=== PATIENT | male | born 1935 | race Caucasian/White ===

== ENCOUNTER 2016-04-07 11:22 | Outpatient (CLI) | payer MEDICARE, BC | END 2016-04-07 11:23 | disposition home or self-care (01) | DX: E78.00 Pure hypercholesterolemia, unspecified (principal); E55.9 Vitamin D deficiency, unspecified ==

== ENCOUNTER 2016-11-24 12:45 | Outpatient (CLI) | payer MEDICARE, BC | END 2016-11-24 12:46 | disposition home or self-care (01) | LOC: LAB.F 12:45 | PROVIDERS: ATTEND Internal Medicine | DX: E55.9 Vitamin D deficiency, unspecified (principal) | CPT/HCPCS: 36415; 82306 ==

== ENCOUNTER 2016-12-06 11:17 | Outpatient (CLI) | payer MEDICARE, BC ==
--- NOTE | 2016-12-07 15:39 | DEXA Report ---
DEXA: 12/06/2016 CLINICAL INDICATION: Osteoporosis. TECHNIQUE: Dual energy x-ray absorptiometry (DXA) was performed on a [employer] system. Regions measured are the AP spine, femoral neck, and, if needed, forearm. COMPARISON: None. In accordance with the International Society for Clinical Densitometry (ISCD) guidelines, data from previous exams may be reanalyzed using current recommendations and techniques. This is done to allow a more accurate basis for comparison with the current study. FINDINGS Data for the lumbar spine is as follows: REGION BMD (g/cm/cm) T-SCORE Z-SCORE L1 0.761 -3.3 -1.9 L2 0.834 -3.4 -2.0 L3 1.048 -1.6 -0.2 L4 1.054 -1.6 -0.1 TOTAL 0.934 -2.4 -1.0 NOTE: All evaluable vertebrae are used for classification. Data for the hip is as follows: REGION BMD (g/cm/cm) T-SCORE Z-SCORE Neck 0.589 -3.7 -1.7 TOTAL 0.645 -3.2 -1.6 NOTE: The femoral neck or total proximal femur, whichever is lowest, is used for classification. IMPRESSION: THE WHO CLASSIFICATION BASED ON THE INTERNATIONAL REFERENCE STANDARD IS OSTEOPOROSIS. FRACTURE RISK IS HIGH. RECOMMENDATION: Patients with diagnosis of osteoporosis or osteopenia should have regular bone mineral density assessment. For those eligible for Medicare, routine testing is allowed once every 2 years. Testing frequency can be increased for patients who have rapidly progressing disease or for those who are receiving medical therapy to restore bone mass. COMMENT: World Health Organization (WHO) definitions for osteoporosis and osteopenia: NORMAL BMD: T-score at -1.0 or higher, fracture risk is low. OSTEOPENIA BMD: T-score between -1.0 and -2.5, fracture risk is increased. OSTEOPOROSIS BMD: T-score at -2.5 or lower, fracture risk high. National Osteoporosis Foundation recommends: 1. Obtain adequate dietary calcium (at least 1200 mg per day) and vitamin D (400 -800 international units per day). 2. Participate, as appropriate, in regular weightbearing and muscle- strengthening exercise. 3. Avoid tobacco use and reduce alcohol and caffeine intake. 4. For more detailed information see the website at www.NOF.org. MTDD
== END 2016-12-06 11:18 | disposition home or self-care (01) ==
LOC: DI 11:17
PROVIDERS: ATTEND Internal Medicine
DX: M81.0 Age-related osteoporosis without current pathological fracture (principal)
CPT/HCPCS: 77080

== ENCOUNTER 2017-01-13 15:47 | Outpatient (CLI) | payer MEDICARE, BC ==
[2017-01-13 18:48] LABS: BILIRUBIN,URINE NEGATIVE (NEGATIVE)
[2017-01-13 18:51] LABS: BASOPHILS % (AUTO) 0.6 %; EOSINOPHILS # (AUTO) 0.1 10^3/uL (0.0-0.7); EOSINOPHILS % (AUTO) 1.3 %; HCT - HEMATOCRIT 45.8 % (42.0-52.0); HGB - HEMOGLOBIN 15.5 g/dL (14.0-18.0); LYMPHOCYTES # (AUTO) 1.3 10^3/uL (1.5-3.5); LYMPHOCYTES % (AUTO) 19.4 %; MEAN CORPUSCULAR HEMOGLOBIN 34.2 pg (27.0-31.0); MEAN CORPUSCULAR HGB CONC 33.8 g/dL (32.0-36.0); MEAN CORPUSCULAR VOLUME 101.1 fL (80.0-94.0); MEAN PLATELET VOLUME 9.6 fL (7.4-11.4); MONOCYTES # (AUTO) 0.6 10^3/uL (0.0-1.0); MONOCYTES % (AUTO) 9.2 %; NEUTROPHILS # (AUTO) 4.8 10^3/uL (1.5-6.6); NEUTROPHILS % (AUTO) 69.5 %; NUCLEATED RED BLOOD CELLS AUTO 0.1 /100WBC; RED BLOOD COUNT 4.53 10^6/uL (4.70-6.10); RED CELL DISTRIBUTION WIDTH 12.5 % (12.0-15.0); UNCORRECTED WHITE BLOOD COUNT 6.8 x10^3/uL; WHITE BLOOD COUNT 6.8 x10^3/uL (4.8-10.8)
[2017-01-13 18:57] LABS: UR CULTURE IF IND NOT INDICATED; WBC,URINE 0-3 /HPF (0-3)
[2017-01-13 19:24] LABS: BILIRUBIN,TOTAL 0.5 mg/dL (0.2-1.0); CREATININE 1.1 mg/dL (0.6-1.2); POTASSIUM 4.7 mmol/L (3.5-5.0); TOTAL PROTEIN 7.5 g/dL (6.7-8.2)
== END 2017-01-13 15:48 | disposition home or self-care (01) ==
LOC: LAB.F 15:47
PROVIDERS: ATTEND Physician Assistant Medical
DX: R50.9 Fever, unspecified (principal); Z12.5 Encounter for screening for malignant neoplasm of prostate; N39.0 Urinary tract infection, site not specified; R53.83 Other fatigue
CPT/HCPCS: 36415; 80053; 81001; 85025; G0103; 84153; 87086

== ENCOUNTER 2017-01-14 10:04 | Outpatient (CLI) | payer MEDICARE, BC ==
--- NOTE | 2017-01-14 21:59 | XRAY Report ---
EXAM: CHEST RADIOGRAPHY EXAM DATE: 01/14/2017 10:22 AM. CLINICAL HISTORY: FATIGUE AND MALAISE, FEVER. COMPARISON: 08/20/2013. TECHNIQUE: 2 views. FINDINGS: Lungs/Pleura: Lung volumes are increased. No consolidative process or focal pneumonia. Negative for p leural effusion and pneumothorax. Mediastinum: The heart size is normal. Trachea is midline. Other: None. IMPRESSION: No acute cardiopulmonary abnormality. [facility] Referring Provider Line: [phone] SITE ID: [id number]
== END 2017-01-14 10:05 | disposition home or self-care (01) ==
LOC: DI 10:04
PROVIDERS: ATTEND Physician Assistant Medical
DX: R53.83 Other fatigue (principal); R50.9 Fever, unspecified
CPT/HCPCS: 71020

== ENCOUNTER 2017-01-27 10:44 | Outpatient (CLI) | payer MEDICARE, BC ==
[2017-01-27 18:07] LABS: PSA FREE 0.517 ng/mL (0.16-2.81)
[2017-01-27 18:08] LABS: PSA TOTAL 2.403 ng/mL (0.000-2.000)
[2017-01-27 18:12] LABS: THYROID STIMULATING HORMONE 1.51 uIU/mL (0.34-5.60)
== END 2017-01-27 10:45 | disposition home or self-care (01) ==
LOC: LAB.F 10:44
PROVIDERS: ATTEND Physician Assistant Medical
DX: R53.83 Other fatigue (principal); R97.20 Elevated prostate specific antigen [PSA]
CPT/HCPCS: 36415; 82607; 84154; 84443

== ENCOUNTER 2017-08-21 09:42 | Outpatient (CLI) | payer MEDICARE, BC ==
[2017-08-21 18:22] LABS: ALBUMIN 4.2 g/dL (3.2-5.5); ALBUMIN/GLOBULIN RATIO 1.2 (1.0-2.2); ALKALINE PHOSPHATASE 55 IU/L (42-121); ALT ALANINE AMINOTRANSFERASE 14 IU/L (10-60); AST ASPARTATE AMINOTRANSFERASE 19 IU/L (10-42); BILIRUBIN,TOTAL 0.9 mg/dL (0.2-1.0); BUN - BLOOD UREA NITROGEN 22 mg/dL (6-20); CALCIUM 9.9 mg/dL (8.5-10.3); CARBON DIOXIDE - CO2 31 mmol/L (21-32); CHLORIDE 100 mmol/L (101-111); CHOL/HDL RATIO 3.4 (<5.0); CHOLESTEROL 260 mg/dL; CREATININE 1.3 mg/dL (0.6-1.2); GFR - MDRD 53 (>89); GLUCOSE 95 mg/dL (70-100); HDL CHOLESTEROL 76 mg/dL; LDL CHOLESTEROL,CALCULATED 159 mg/dL; LDL/HDL RATIO 2.1 (<3.6); SODIUM 139 mmol/L (135-145); TOTAL PROTEIN 7.7 g/dL (6.7-8.2); VLDL CHOLESTEROL 25 mg/dL
== END 2017-08-21 09:43 | disposition home or self-care (01) ==
LOC: LAB.F 09:42
PROVIDERS: ATTEND Internal Medicine
DX: I10 Essential (primary) hypertension (principal); E55.9 Vitamin D deficiency, unspecified
CPT/HCPCS: 36415; 80053; 80061; 82306; 82652; 83721; 84443

== ENCOUNTER 2018-03-19 13:08 | Outpatient (CLI) | payer MEDICARE, BC ==
[2018-03-19 17:37] LABS: BASOPHILS % (AUTO) 0.5 %; EOSINOPHILS % (AUTO) 0.2 %; HGB - HEMOGLOBIN 16.2 g/dL (14.0-18.0); LYMPHOCYTES # (AUTO) 1.3 10^3/uL (1.5-3.5); LYMPHOCYTES % (AUTO) 13.1 %; MEAN CORPUSCULAR HEMOGLOBIN 33.7 pg (27.0-31.0); MEAN CORPUSCULAR HGB CONC 33.3 g/dL (32.0-36.0); MEAN CORPUSCULAR VOLUME 101.2 fL (80.0-94.0); MEAN PLATELET VOLUME 8.7 fL (7.4-11.4); MONOCYTES # (AUTO) 0.7 10^3/uL (0.0-1.0); MONOCYTES % (AUTO) 7.2 %; NEUTROPHILS # (AUTO) 7.6 10^3/uL (1.5-6.6); PLT - PLATELET COUNT 321 10^3/uL (130-450); RED BLOOD COUNT 4.81 10^6/uL (4.70-6.10); RED CELL DISTRIBUTION WIDTH 13.8 % (12.0-15.0); WHITE BLOOD COUNT 9.6 x10^3/uL (4.8-10.8)
[2018-03-19 17:56] LABS: ALBUMIN 4.1 g/dL (3.2-5.5); ALBUMIN/GLOBULIN RATIO 1.2 (1.0-2.2); BILIRUBIN,TOTAL 0.6 mg/dL (0.2-1.0); CALCIUM 9.7 mg/dL (8.5-10.3); CREATININE 1.3 mg/dL (0.6-1.2); TOTAL PROTEIN 7.4 g/dL (6.7-8.2)
== END 2018-03-19 13:09 | disposition home or self-care (01) ==
LOC: LAB.F 13:08
PROVIDERS: ATTEND Physician Assistant Medical
DX: R53.83 Other fatigue (principal); R50.9 Fever, unspecified
CPT/HCPCS: 36415; 80053; 84443; 85025

== ENCOUNTER 2018-03-21 10:36 | Outpatient (CLI) | payer MEDICARE, BC ==
--- NOTE | 2018-03-21 16:00 | XRAY Report ---
Reason: FATIGUE MALAISE, SHORTNESS OF BREATH/OSTEOPOROSI Procedure Date: 03/21/2018 Accession Number: [id number] / [id number] Procedure: XR - Chest 2 View X-Ray CPT Code: 87970 FULL RESULT: EXAM: CHEST RADIOGRAPHY EXAM DATE: 03/21/2018 12:09 PM. CLINICAL HISTORY: Fatigue, malaise, shortness of breath/osteoporosis. COMPARISON: CHEST 2 VIEW PA/LAT 01/14/2017 10:09 AM. TECHNIQUE: 2 views. FINDINGS: Lungs/Pleura: Overall paucity of lung markings, especially in the left upper lung. No focal opacities evident. No pleural effusion. No pneumothorax. High lung volumes with flattening of diaphragms. Mediastinum: Heart and mediastinal contours are stable and not enlarged. Other: None. IMPRESSION: Suspect emphysema as well as COPD based on paucity of lung markings, increased lung volumes and flattened diaphragms. Recommendation: Low dose CT of the chest for lung cancer screening. [facility]
--- NOTE | 2018-03-23 09:20 | DEXA Report ---
Reason: FATIGUE MALAISE, SHORTNESS OF BREATH/OSTEOPOROSI Procedure Date: 03/21/2018 Accession Number: [id number] / [id number] Procedure: DEX - Dexa Spine and/or Hip CPT Code: FULL RESULT: EXAM: Dexa Spine and/or Hip DATE: 03/21/2018 11:18 AM CLINICAL HISTORY: FATIGUE MALAISE, SHORTNESS OF BREATH/OSTEOPOROSI TECHNIQUE: Dual energy x-ray absorptiometry (DXA) was performed on a [employer] System. Regions measured are the AP Spine, femoral neck, and if needed forearm. COMPARISON: 12/06/2016. In accordance with the International Society for Clinical Densitometry (ISCD) guidelines, data from previous exams may be reanalyzed using current recommendations and techniques. This is done to allow a more accurate basis for comparison with the current study. FINDINGS: The data for the lumbar spine is as follows: BMD (g/cm/cm) T-SCORE Z-SCORE REGION L1 0.750 -3.4 -2.2 L2 0.836 -3.4 -2.1 L3 0.931 -2.6 -1.3 L4 1.015 -1.9 -0.6 TOTAL 0.897 -2.7 -1.5 NOTE: All evaluable vertebrae are used for classification The data for the hip is as follows: BMD (g/cm/cm) T-SCORE Z-SCORE REGION Neck 0.593 -3.7 -1.8 TOTAL 0.664 -3.0 -1.6 NOTE: The femoral neck or total proximal femur, whichever is lowest, is used for classification. DXA RESULTS SUMMARY: Spine SCAN DATE AGE BMD CHANGE VS CHANGE VS PREVIOUS PREVIOUS % [birth year]21/2018 [age] 0.897 -0.037* -4.0* 12/06/2016 [age] 0.934 * Denotes significant change at the 95% confidence level. Denotes dissimilar scan types or analysis methods. DXA RESULTS SUMMARY: Hip SCAN DATE AGE BMD CHANGE VS CHANGE VS PREVIOUS PREVIOUS % [birth year]/2018 82.3 0.664 0.019 2.9 12/06[birth year]2016 [age] 0.645 * Denotes significant change at the 95% confidence level. Denotes dissimilar scan types or analysis methods. IMPRESSION: THE WHO CLASSIFICATION BASED ON THE INTERNATIONAL REFERENCE STANDARD IS OSTEOPOROSIS. THE FRACTURE RISK IS HIGH. RECOMMENDATION: Patients with diagnosis of osteoporosis or osteopenia should have regular bone mineral density assessment. For those eligible for Medicare, routine testing is allowed once every 2 years. Testing frequency can be increased for patients who have rapidly progressing disease or for those who are receiving medical therapy to restore bone mass. COMMENT: World Health Organization (WHO) definitions for osteoporosis and osteopenia: NORMAL BMD: T-score at -1.0 or higher, fracture risk is low OSTEOPENIA BMD: T-score between -1.0 and -2.5, fracture risk is increased. OSTEOPOROSIS BMD: T-score at -2.5 or lower, fracture risk is high. National Osteoporosis Foundation recommends: 1. Obtain adequate dietary calcium (at least 1200 mg per day) and vitamin D (400-800 international units per day). 2. Participate, as appropriate, in regular weightbearing and muscle-strengthening exercise. 3. Avoid tobacco use and reduce alcohol and caffeine intake. 4. For more detailed information see the website at www.NOF.org.
== END 2018-03-21 10:37 | disposition home or self-care (01) ==
LOC: DI 10:36
PROVIDERS: ATTEND Physician Assistant Medical
DX: M81.0 Age-related osteoporosis without current pathological fracture (principal); R53.83 Other fatigue; R06.02 Shortness of breath
CPT/HCPCS: 71046; 77080

== ENCOUNTER 2020-03-21 13:18 | Outpatient (CLI) | payer MEDICARE, BC | END 2020-03-21 13:19 | disposition EMS.NT | LOC: EMS 13:18 | PROVIDERS: ATTEND Surgery | DX: Z03.89 Encounter for observation for other suspected diseases and conditions ruled out (principal) ==

== ENCOUNTER 2020-04-29 13:50 | Outpatient (CLI) | payer MEDICARE, BC ==
[2020-04-29 19:57] LABS: BASOPHILS % (AUTO) 0.3 %; EOSINOPHILS # (AUTO) 0.2 10^3/uL (0.0-0.7); EOSINOPHILS % (AUTO) 1.7 %; HCT - HEMATOCRIT 37.3 % (42.0-52.0); HGB - HEMOGLOBIN 10.9 g/dL (14.0-18.0); LYMPHOCYTES # (AUTO) 1.5 10^3/uL (1.5-3.5); LYMPHOCYTES % (AUTO) 11.1 %; MEAN CORPUSCULAR HEMOGLOBIN 30.4 pg (27.0-31.0); MEAN CORPUSCULAR HGB CONC 29.2 g/dL (32.0-36.0); MEAN CORPUSCULAR VOLUME 103.9 fL (80.0-94.0); MEAN PLATELET VOLUME 10.3 fL (7.4-11.4); MONOCYTES # (AUTO) 1.4 10^3/uL (0.0-1.0); MONOCYTES % (AUTO) 10.6 %; NEUTROPHILS # (AUTO) 10.2 10^3/uL (1.5-6.6); NEUTROPHILS % (AUTO) 75.3 %; PLT - PLATELET COUNT 775 10^3/uL (130-450); RED BLOOD COUNT 3.59 10^6/uL (4.70-6.10); RED CELL DISTRIBUTION WIDTH 13.2 % (12.0-15.0); WHITE BLOOD COUNT 13.6 x10^3/uL (4.8-10.8)
[2020-04-29 20:04] LABS: BILIRUBIN,URINE NEGATIVE (NEGATIVE); GLUCOSE, URINE (UA) NEGATIVE (NEGATIVE); KETONES,URINE (UA) NEGATIVE (NEGATIVE); LEUKOCYTE ESTERASE, URINE TRACE (NEGATIVE); NITRITE,URINE NEGATIVE (NEGATIVE); OCCULT BLOOD,URINE LARGE (NEGATIVE); PH,URINE 6.5 PH (5.0-7.5); PROTEIN,URINE 100 mg/dL (NEGATIVE); UROBILINOGEN,URINE 0.2 (NORMAL) E.U./dL (NORMAL)
[2020-04-29 20:08] LABS: CLARITY,URINE CLOUDY (CLEAR)
[2020-04-29 20:14] LABS: BACTERIA,URINE Few /HPF (None Seen); RBC,URINE TNTC /HPF (0-5); SQUAMOUS EPITHELIAL CELL,UR RARE Squamous (<= Few)
[2020-04-29 20:23] LABS: THYROID STIMULATING HORMONE 3.09 uIU/mL (0.34-5.60)
[2020-04-29 20:33] LABS: ALBUMIN 2.6 g/dL (3.2-5.5); ALBUMIN/GLOBULIN RATIO 0.6 (1.0-2.2); ALKALINE PHOSPHATASE 73 IU/L (42-121); ALT ALANINE AMINOTRANSFERASE 12 IU/L (10-60); AST ASPARTATE AMINOTRANSFERASE 19 IU/L (10-42); BILIRUBIN,TOTAL 0.4 mg/dL (0.2-1.0); BUN - BLOOD UREA NITROGEN 25 mg/dL (6-20); CHOL/HDL RATIO 5.5 (<5.0); CHOLESTEROL 216 mg/dL; CREATININE 2.3 mg/dL (0.6-1.2); GFR - MDRD 27 (>89); HDL CHOLESTEROL 39 mg/dL; LDL CHOLESTEROL,CALCULATED 153 mg/dL; LDL/HDL RATIO 3.9 (<3.6); TOTAL PROTEIN 7.2 g/dL (6.7-8.2); TRIGLYCERIDES 118 mg/dL; VLDL CHOLESTEROL 24 mg/dL
[2020-04-29 20:43] LABS: CALCIUM 8.8 mg/dL (8.5-10.3); CARBON DIOXIDE - CO2 25 mmol/L (21-32); CHLORIDE 98 mmol/L (101-111); GLUCOSE 107 mg/dL (70-100); POTASSIUM 3.6 mmol/L (3.5-5.0); SODIUM 136 mmol/L (135-145)
== END 2020-04-29 13:51 | disposition home or self-care (01) ==
LOC: LAB.S 13:50
PROVIDERS: ATTEND Registered Nurse
DX: I10 Essential (primary) hypertension (principal); E78.00 Pure hypercholesterolemia, unspecified; Z12.5 Encounter for screening for malignant neoplasm of prostate; R31.9 Hematuria, unspecified
CPT/HCPCS: 36415; 80053; 80061; 81001; 83721; 84153; 84443; 85025; 87086

== ENCOUNTER 2020-04-29 16:52 | Inpatient (IN) | payer MEDICARE, BC ==
--- NOTE | 2020-04-29 17:18 | ED Physician Documentation ---
PD HPI MALE - Stated complaint Stated Complaint: WEAKNESS/RECTAL BLEED - Chief complaint Chief Complaint: General - History obtained from History obtained from: Patient, Family (spouse) - History of Present Illness Timing - onset: How many weeks ago (2-3 weeks of general weakness, nausea, less oral intake, but no vomiting and no notable weight loss. Few days of chills and fatigue, discomfort urinating. This morning had temp at home of 101.5 and blood with urination.) Timing - duration: Days, Weeks Timing - details: Gradual onset, Still present (worse the past couple of days.) Associated symptoms: Dysuria (few days), Hematuria (this morning). No: Abdominal pain, Back pain PD HPI MALE CONTRIB FACTORS: No: Sexually active Similar symptoms before: Has not had sx before Recently seen: Clinic (went to Urgent Care this afternoon and had UA done there that was positive for UTI, and noted to be tachycardic and febrile 101.5 there. Referred to ER for Eval.) Review of Systems Constitutional: reports: Fever (noted today), Chills (few days), Fatigue Ears: reports: Loss of hearing (chronic poor hearing) Nose: denies: Rhinorrhea / runny nose, Congestion Throat: denies: Sore throat Cardiac: denies: Chest pain / pressure Respiratory: denies: Dyspnea, Cough GI: reports: Nausea, Constipation (for couple of weeks.). denies: Abdominal Pain, Vomiting, Diarrhea : reports: Dysuria, Hematuria (today) Skin: denies: Rash Neurologic: reports: Generalized weakness. denies: Focal weakness, Near syncope, Altered mental status, Headache Endocrine: denies: Weight loss Immunocompromised: denies: Immunocompromised PD PAST MEDICAL HISTORY - Past Medical History Cardiovascular: Hypertension Respiratory: None Endocrine/Autoimmune: None : Benign prostate hypertrophy Musculoskeletal: None - Present Medications Home Medications: Ambulatory Orders Medication Instructions Recorded Confirmed Tamsulosin [Flomax] 0.4 mg PO DAILY 04/29/20 04/29/20 - Allergies Allergies/Adverse Reactions: Allergies Allergy/AdvReac Type Severity Reaction Status Date / Time No Known Drug Allergies Allergy Verified 04/29/20 17:08 - Living Situation Living Situation: reports: With spouse/s.o. Living Arrangement: reports: At home - Social History Does the pt smoke?: No Does the pt drink ETOH?: No Does the pt have substance abuse?: No - Family History Family history: reports: Non contributory PD ED PE NORMAL - Vitals Vital signs reviewed: Yes - General General: Alert and oriented X 3, Well developed/nourished - HEENT HEENT: Pharynx benign, Other (hard of hearing). No: Moist mucous membranes - Neck Neck: Supple, no meningeal sign, No adenopathy - Cardiac Cardiac: No: RRR (tachycardic but regular) - Respiratory Respiratory: Clear bilaterally - Abdomen Abdomen: Soft, Non tender, Non distended, No organomegaly - Back Back: No CVA TTP - Derm Derm: Normal color, Warm and dry - Extremities Extremities: No tenderness to palpate, Normal ROM s pain, No edema, No calf tenderness / cord - Neuro Neuro: Alert and oriented X 3, No motor deficit, Normal speech Results - Vitals Vitals: Vital Signs - 24 hr 04/29/20 17:03 Temperature 36.6 C Heart Rate 103 H Respiratory 14 Rate Blood Pressure 122/57 L O2 Saturation 94 Oxygen O2 Source Room air - EKG (time done) 17:13 Rate: Rate (enter#) (96) Rhythm: NSR [place]: Normal Intervals: LBBB QRS: Normal Ischemia: Normal ST segments, Non specific changes. No: ST elevation c/w ischemia, ST depression - Labs Labs: Laboratory Tests 04/29/20 04/29/20 04/29/20 17:15 17:15 17:20 WBC 11.7 H RBC 3.43 L Hgb 10.5 L Hct 34.1 L MCV 99.4 H MCH 30.6 MCHC 30.8 L RDW 13.1 Plt Count 629 H MPV 9.4 Neut # (Auto) 9.5 H Lymph # (Auto) 0.8 L Yell # (Auto) 1.1 H Eos # (Auto) 0.1 Baso # (Auto) 0.1 Absolute Nucleated RBC 0.00 Nucleated RBC % 0.0 Sodium Potassium Chloride Carbon Dioxide Anion Gap BUN Creatinine Estimated GFR (MDRD) Glucose Lactic Acid Calcium Total Bilirubin AST ALT Alkaline Phosphatase B-Natriuretic Peptide 106 H Total Protein Albumin Globulin Albumin/Globulin Ratio Lipase TSH 2.99 04/29/20 04/29/20 17:20 17:20 WBC RBC Hgb Hct MCV MCH MCHC RDW Plt Count MPV Neut # (Auto) Lymph # (Auto) Yell # (Auto) Eos # (Auto) Baso # (Auto) Absolute Nucleated RBC Nucleated RBC % Sodium 134 L Potassium 4.0 Chloride 98 L Carbon Dioxide 24 Anion Gap 12.0 BUN 27 H Creatinine 2.3 H Estimated GFR (MDRD) 27 L Glucose 126 H Lactic Acid 1.6 Calcium 8.7 Total Bilirubin 0.8 AST 16 ALT 15 Alkaline Phosphatase 71 B-Natriuretic Peptide Total Protein 6.9 Albumin 2.5 L Globulin 4.4 H Albumin/Globulin Ratio 0.6 L Lipase 27 TSH - Rads (name of study) chest xray Radiology: Prelim report reviewed (no acute process), See rad report PD MEDICAL DECISION MAKING - ED course Complexity details: reviewed results (Labs are showing elevated white count and an elevated creatinine over baseline. Chest x-ray is clear done in evaluation of general weakness symptoms overall. He does have UTI and unclear the duration of that.), re-evaluated patient, considered differential (UTI symptoms, general weakness, tachycardia and febrile. He does not appear septic with good mentation and normal lactate but still his vitals are concerning in conjunction with his elevated creatinine that I feel he needs further acute care.), d/w patient Departure - Departure Disposition: 66 [facility] DC/Xfer Clinical Impression: General weakness, Decreased oral intake, Acute kidney injury UTI (urinary tract infection) Qualifiers: Urinary tract infection type: acute cystitis Hematuria presence: with hematuria Qualified Code(s): N30.01 - Acute cystitis with hematuria Condition: Stable Record reviewed to determine appropriate education?: Yes
[2020-04-29 17:35] LABS: BASOPHILS # (AUTO) 0.1 10^3/uL (0.0-0.1); BASOPHILS % (AUTO) 0.4 %; EOSINOPHILS # (AUTO) 0.1 10^3/uL (0.0-0.7); EOSINOPHILS % (AUTO) 0.9 %; HCT - HEMATOCRIT 34.1 % (42.0-52.0); HGB - HEMOGLOBIN 10.5 g/dL (14.0-18.0); LYMPHOCYTES # (AUTO) 0.8 10^3/uL (1.5-3.5); LYMPHOCYTES % (AUTO) 6.6 %; MEAN CORPUSCULAR HEMOGLOBIN 30.6 pg (27.0-31.0); MEAN CORPUSCULAR HGB CONC 30.8 g/dL (32.0-36.0); MEAN CORPUSCULAR VOLUME 99.4 fL (80.0-94.0); MEAN PLATELET VOLUME 9.4 fL (7.4-11.4); MONOCYTES # (AUTO) 1.1 10^3/uL (0.0-1.0); MONOCYTES % (AUTO) 9.6 %; NEUTROPHILS # (AUTO) 9.5 10^3/uL (1.5-6.6); NEUTROPHILS % (AUTO) 81.7 %; PLT - PLATELET COUNT 629 10^3/uL (130-450); RED BLOOD COUNT 3.43 10^6/uL (4.70-6.10); RED CELL DISTRIBUTION WIDTH 13.1 % (12.0-15.0); WHITE BLOOD COUNT 11.7 x10^3/uL (4.8-10.8)
[2020-04-29] MEDS ORDERED: cefTRIAXone 1 GM VIAL IVP STA (17:44)
[2020-04-29] MEDS ORDERED: SODIUM CHLORIDE 0.9% 1,000 ML IV STA (17:44)
[2020-04-29] MEDS ORDERED: ACETAMINOPHEN 325 MG TABLET PO STA (17:45)
[2020-04-29 17:50] LABS: ALBUMIN 2.5 g/dL (3.2-5.5); ALBUMIN/GLOBULIN RATIO 0.6 (1.0-2.2); BILIRUBIN,TOTAL 0.8 mg/dL (0.2-1.0); CALCIUM 8.7 mg/dL (8.5-10.3); CREATININE 2.3 mg/dL (0.6-1.2); TOTAL PROTEIN 6.9 g/dL (6.7-8.2)
--- NOTE | 2020-04-29 18:10 | XRAY Report ---
PROCEDURE: Chest 1 View X-Ray INDICATIONS: chest pain TECHNIQUE: One view of the chest was acquired. COMPARISON: FINDINGS: Surgical changes and devices: None. Lungs and pleura: No pleural effusions or pneumothorax. Lungs are abnormal with chronic interstitia l prominence, and with a band of radiodensity extending vertically at the lateral right upper lobe an d also a band of radiodensity extending laterally from the brachiocephalic artery region on the left. The exact etiology of these findings is uncertain, but a pneumothorax is not found.. Mediastinum: Mediastinal contours appear normal. Heart size is normal. Bones and chest wall: No suspicious bony lesions. Overlying soft tissues appear unremarkable. IMPRESSION: Unusual radiodensities as discussed above could be skin folds, superimposed on chronic lung disease. These bands of radiodensity bilaterally were not present on a comparison two-view chest 01/14/2017. D eep inspiratory PA and lateral chest plain films are recommended to more accurately assess this abnor mality, either now or in the near future. Reviewed by: Abhinav Schmitt MD on 04/29/2020 5:09 PM AKST Approved by: Abhinav Schmitt MD on 04/29/2020 5:09 PM AKST Station ID: [id number]
[2020-04-29] MEDS ORDERED: SODIUM CHLORIDE FLUSH 0.9% 10 ML SYRINGE IVP PRN (18:37)
[2020-04-29] MEDS ORDERED: ACETAMINOPHEN 325 MG TABLET PO PRN (18:37)
[2020-04-29 18:38] LABS: BILIRUBIN,URINE NEGATIVE (NEGATIVE); GLUCOSE, URINE (UA) NEGATIVE (NEGATIVE); KETONES,URINE (UA) NEGATIVE (NEGATIVE); LEUKOCYTE ESTERASE, URINE TRACE (NEGATIVE); NITRITE,URINE NEGATIVE (NEGATIVE); OCCULT BLOOD,URINE LARGE (NEGATIVE); PH,URINE 6.5 PH (5.0-7.5); PROTEIN,URINE >=300 mg/dL (NEGATIVE); UROBILINOGEN,URINE 0.2 (NORMAL) E.U./dL (NORMAL)
[2020-04-29 18:51] LABS: CLARITY,URINE CLOUDY (CLEAR)
[2020-04-29 18:52] LABS: BACTERIA,URINE Rare /HPF (None Seen); RBC,URINE TNTC /HPF (0-5); SQUAMOUS EPITHELIAL CELL,UR NONE SEEN (<= Few)
[2020-04-29 19:45] LABS: B. PARAPERTUSSIS- RESP PCR PAN NOT DETECTED; B. PERTUSSIS- RESP PCR PANEL NOT DETECTED; C. PNEUMONIAE- RESP PCR PANEL NOT DETECTED; CORONAVIRUS 229E-RESP PCR NOT DETECTED; CORONAVIRUS HKU1-RESP PCR NOT DETECTED; CORONAVIRUS NL63-RESP PCR NOT DETECTED; CORONAVIRUS OC43-RESP PCR NOT DETECTED; HUMAN METAPNEUMOVIRUS NOT DETECTED; INFLUENZA A- RESP PCR PANEL NOT DETECTED; INFLUENZA B - RESP PCR PANEL NOT DETECTED; M. PNEUMONIAE- RESP PCR PANEL NOT DETECTED; PARAINFLUENZA VIRUS 1 NOT DETECTED; PARAINFLUENZA VIRUS 2 NOT DETECTED; PARAINFLUENZA VIRUS 3 NOT DETECTED; PARAINFLUENZA VIRUS 4 NOT DETECTED; RHINOVIRUS/ENTEROVIRUS NOT DETECTED; RSV- RESP PCR PANEL NOT DETECTED; SARS-CoV-2 -RESP PCR PANEL NOT DETECTED
[2020-04-29] MEDS: SODIUM CHLORIDE 0.9% 1,000 ML IV SCH (19:47)
[2020-04-29] MEDS: SODIUM CHLORIDE FLUSH 0.9% 10 ML SYRINGE IVP SCH (23:31)
--- NOTE | 2020-04-30 00:01 | HISTORY & PHYSICAL EXAMINATION ---
DATE OF SERVICE: 04/29/2020 Physician: Katie Guthrie MD HISTORY OF PRESENT ILLNESS: This is an 84-year-old white male with a history of prostatic hypertrophy and hard of hearing, he presented to the emergency room with weakness, chills and a fever today. The gave the history and reported that the patient has had weakness with no appetite and very poor oral intake for two to three weeks and then has complained of chills and been mostly in bed for two to three days. Today, he spiked a fever and therefore was brought to the emergency room. In the ER, he reported having hematuria, but no dysuria. He did not have a fever in the ER and his workup showed that he had an elevated white blood count of 11.7, abnormal creatinine of 2.3 and was tachycardic at 102. His urinalysis was done that showed indices compatible with a UTI. The patient is being admitted to inpatient status for management of sepsis from a UTI, acute kidney injury, dehydration, failure to thrive, and weakness. PAST MEDICAL HISTORY 1. Prostate hypertrophy. 2. Hard of hearing. ALLERGIES: NONE. MEDICATIONS: Tamsulosin 0.4 mg daily. SOCIAL HISTORY: He is a nonsmoker, drinks no alcohol. He lives with his . REVIEW OF SYSTEMS: He is hard of hearing, he listens with his left ear. A comprehensive review of systems was done and the pertinent positives are listed above, the rest are negative. FAMILY HISTORY: Noncontributory. PHYSICAL EXAM GENERAL: Thin, elderly, white male. He is in no acute distress, supine in bed. VITAL SIGNS: Blood pressure is 122/57, heart rate 103 in sinus rhythm, afebrile, room air saturation 94%. 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 He is thin with temporal wasting and hard of hearing, worse on the right. His oral mucosa is dry. NECK: No JVD or carotid bruits. CHEST: Clear. CARDIOVASCULAR: Normal without murmurs. ABDOMEN: Soft, nontender, not distended. No organomegaly. EXTREMITIES: No clubbing, cyanosis or edema. NEUROLOGIC: Grossly intact except for being hard of hearing. LABORATORY DATA: Sodium 134, potassium 4.0, BUN 27, creatinine 2.3 (his baseline creatinine is 1.0-1.3). White blood count 11.7, hemoglobin 10.5 with MCV of 99, platelet count elevated at 629. Urinalysis showed a pH of 6.5, specific gravity of 1.02, greater than 300 protein, large occult blood, trace leukocyte esterase, many white blood cells, and rare bacteria. His [employer] test was negative for COVID. EKG: Sinus rhythm, left bundle branch block. There is no old EKG available for comparison. IMAGING: Chest x-ray: Normal heart size and no evidence of infiltrate, but there is an abnormal interstitial prominence in a band, lateral to the right upper lobe, which the radiologist thought was possibly a skin fold, on top of chronic lung disease. IMPRESSION/DIAGNOSES 1. Sepsis by virtue of tachycardia, elevated white blood count and evidence of urinary tract infection. 2. Urinary tract infection. 3. Acute kidney injury. 4. Dehydration. 5. Anemia, despite being dehydrated. 6. Benign prostatic hypertrophy, by history. 7. Hard of hearing. PLAN: Admit the patient to inpatient status on telemetry. Begin IV fluids. Begin empiric IV antibiotics. Apparently iv ceftriaxone was already given in the ER, but blood cultures had not yet been done prior. Blood cultures have now been ordered and were drawn and we will await if there could be any growth despite having already received some IV antibiotics. Continue with treatment for his prostate hypertrophy. Follow his CBC, and we will probably need to check his B12, folate levels and iron stores. Consider transfusion if hemoglobin goes under 7. Avoid nephrotoxins. Avoid nephrotoxins. Follow his BMP daily, watching for improvement of creatinine. DEEP VENOUS THROMBOSIS PROPHYLAXIS: SCDs. CODE STATUS: FULL CODE. ATTESTATION: Patient is expected to be discharged or transferred to another facility within 96 hours: Yes. cc: Naveed Trevizo MD TD: 04/29/2020 23:26 MTDD
[2020-04-30] MEDS: SODIUM CHLORIDE 0.9% 1,000 ML IV SCH ×3 (03:30→21:21)
[2020-04-30 05:03] LABS: BASOPHILS % (AUTO) 0.4 %; EOSINOPHILS # (AUTO) 0.3 10^3/uL (0.0-0.7); EOSINOPHILS % (AUTO) 2.9 %; HCT - HEMATOCRIT 30.1 % (42.0-52.0); LYMPHOCYTES # (AUTO) 0.9 10^3/uL (1.5-3.5); LYMPHOCYTES % (AUTO) 8.9 %; MEAN CORPUSCULAR HEMOGLOBIN 30.1 pg (27.0-31.0); MEAN CORPUSCULAR HGB CONC 29.9 g/dL (32.0-36.0); MEAN CORPUSCULAR VOLUME 100.7 fL (80.0-94.0); MEAN PLATELET VOLUME 9.6 fL (7.4-11.4); MONOCYTES # (AUTO) 1.3 10^3/uL (0.0-1.0); MONOCYTES % (AUTO) 13.1 %; NEUTROPHILS # (AUTO) 7.1 10^3/uL (1.5-6.6); NEUTROPHILS % (AUTO) 73.8 %; PLT - PLATELET COUNT 551 10^3/uL (130-450); RED BLOOD COUNT 2.99 10^6/uL (4.70-6.10); RED CELL DISTRIBUTION WIDTH 13.2 % (12.0-15.0); WHITE BLOOD COUNT 9.7 x10^3/uL (4.8-10.8)
[2020-04-30 05:17] LABS: CALCIUM 7.8 mg/dL (8.5-10.3); CREATININE 2.1 mg/dL (0.6-1.2); POTASSIUM 3.6 mmol/L (3.5-5.0)
[2020-04-30] MEDS: PANTOPRAZOLE 40 MG TABLET PO SCH (06:15)
--- NOTE | 2020-04-30 07:37 | PROVIDER PROGRESS NOTE ---
Assessment/Plan - Problem List (1) Sepsis Assessment/Plan: Due to UTI. Patient is on Rocephin 1 g daily. Urine culture pending. Blood cultures were drawn shortly after initiation of antibiotics. (2) UTI (urinary tract infection) Qualifiers: Urinary tract infection type: acute cystitis Hematuria presence: with hematuria Qualified Code(s): N30.01 - Acute cystitis with hematuria Assessment/Plan: On Rocephin. Blood cell count improved from 11.7-9.7 Urine culture pending. (3) Acute kidney injury Assessment/Plan: Likely multifactorial. Secondary to dehydration, UTI and possibly BPH. Patient is receiving IV hydration with normal saline at 100 mils per hour. Creatinine improved from 2.3-2.1. We will continue. Patient is also receiving IV antibiotics Rocephin 1 g IV daily. On Flomax 0.4mg po daily. (5) BPH (benign prostatic hyperplasia) Assessment/Plan: On flomax .4mg po daily - Current Meds Current Meds: Current Medications Generic Name Dose Route Start Last Admin Trade Name Freq PRN Reason Stop Dose Admin Sodium Chloride 1,000 mls @ 125 mls/hr 04/29/20 19:00 04/30/20 03:30 Normal Saline 0.9% IV 125 mls/hr .Q8H FAZAL Administration Pantoprazole Sodium 40 mg 04/30/20 07:00 04/30/20 06:15 Pantoprazole 40 Mg Tablet PO 40 mg QDAC FAZAL Administration Sodium Chloride 10 ml 04/29/20 18:37 04/29/20 19:47 Sodium Chloride Flush 0.9% 10 Ml Syringe IVP 10 ml PRN PRN Administration NEEDED PER PROVIDER ORDERS Sodium Chloride 10 ml 04/30/20 01:00 04/29/20 23:31 Sodium Chloride Flush 0.9% 10 Ml Syringe IVP Not Given 0100,0900,1700 FAZAL - Lab Result [place] Diagrams: 04/30/20 04:20 04/30/20 04:20 - Additional Planning My Orders: My Active Orders 04/29/20 18:37 Activity Orders [RC] Q2HR IO [RC] IOSHIFT Initiate Bowel Care Protocol [RC] .protocol Initiate Line Care Protocol [RC] QSHIFT Initiate Personal Care Protoco [RC] .protocol Telemetry- [RC] Q4HR Vital Signs [RC] Q4HR Acetaminophen [Tylenol] 650 mg PO Q4HR PRN Sodium Chloride Flush 0.9% [Normal Saline Flush 0.9%] 10 ml IVP PRN PRN Code Status [OTHERS] Routine Condition of Patient [OTHERS] Routine DVT Prophylaxis [OTHERS] Routine 04/29/20 18:39 SCDs [RC] QSHIFT 04/29/20 18:54 Blood Culture [CULTURE, BLOOD #1] [RM] Stat 04/29/20 19:00 Sodium Chloride 0.9% [Normal Saline 0.9%] 1,000 ml IV 125 mls/hr 04/29/20 19:09 Blood Culture [CULTURE, BLOOD #2] [RM] Stat 04/30/20 01:00 Sodium Chloride Flush 0.9% [Normal Saline Flush 0.9%] 10 ml IVP 0100,0900,1700 04/30/20 07:00 Pantoprazole [Protonix] 40 mg PO QDAC 04/30/20 09:00 cefTRIAXone [Rocephin] 1 gm Sodium Chloride 0.9% Minibag [Normal Saline 0.9% Minibag] 100 ml IV DAILY 05/01/20 05:00 BMP - BASIC METABOLIC PANEL [CHEM] DAILYLAB CBC - COMP BLD CT W/AUTO DIFF [HEME] DAILYLAB 05/02/20 05:00 BMP - BASIC METABOLIC PANEL [CHEM] DAILYLAB CBC - COMP BLD CT W/AUTO DIFF [HEME] DAILYLAB 05/03/20 05:00 BMP - BASIC METABOLIC PANEL [CHEM] DAILYLAB CBC - COMP BLD CT W/AUTO DIFF [HEME] DAILYLAB Subjective - Subjective Patient Reports: Other (Patient was having breakfast at the time of exam. He denied any complaints. No dyspnea, chest pain, fever, chills, abdominal pain or nausea.) Objective Vital Signs: Vital Signs - 24 hr 04/29/20 04/29/20 04/29/20 17:03 19:08 19:48 Temperature 36.6 C 37.1 C Heart Rate 103 H 72 Heart Rate [ 80 Brachial] Respiratory 14 18 24 Rate Blood Pressure 122/57 L 122/60 Blood Pressure 119/63 [Left Brachial artery] Blood Pressure [Right Brachial artery] O2 Saturation 94 96 96 04/29/20 04/30/20 04/30/20 21:00 00:00 04:33 Temperature 36.8 C 36.7 C 37.2 C Heart Rate Heart Rate [ 76 72 81 Brachial] Respiratory 16 19 16 Rate Blood Pressure Blood Pressure 101/51 L [Left Brachial artery] Blood Pressure 126/52 L 130/53 L [Right Brachial artery] O2 Saturation 96 97 99 Oxygen O2 Source Room air I&O (Last 24 Hrs): Intake and Output Totals x24h 04/28/20 04/29/20 04/30/20 23:59 23:59 23:59 Intake Total 1100 1064.583 Output Total 50 300 Balance 1050 764.583 General: Alert, Oriented x3, No acute distress HEENT: PERRLA, EOMI Neck: Supple, No JVD Neuro: Alert, Non Focal, Oriented Times 3 Cardiovascular: Regular rate, Normal S1, Normal S2 Respiratory: Chest non-tender, No respiratory distress, Breath sounds nml Abdomen: Normal bowel sounds, Soft Extremities: No clubbing, No cyanosis, No edema - Results Results: Laboratory Results WBC 9.7 x10^3/uL (4.8-10.8) 04/30/20 04:20 RBC 2.99 10^6/uL (4.70-6.10) L 04/30/20 04:20 Hgb 9.0 g/dL (14.0-18.0) L 04/30/20 04:20 Hct 30.1 % (42.0-52.0) L 04/30/20 04:20 MCV 100.7 fL (80.0-94.0) H 04/30/20 04:20 MCH 30.1 pg (27.0-31.0) 04/30/20 04:20 MCHC 29.9 g/dL (32.0-36.0) L 04/30/20 04:20 RDW 13.2 % (12.0-15.0) 04/30/20 04:20 Plt Count 551 10^3/uL (130-450) H 04/30/20 04:20 MPV 9.6 fL (7.4-11.4) 04/30/20 04:20 Neut # (Auto) 7.1 10^3/uL (1.5-6.6) H 04/30/20 04:20 Lymph # (Auto) 0.9 10^3/uL (1.5-3.5) L 04/30/20 04:20 [place] # (Auto) 1.3 10^3/uL (0.0-1.0) H 04/30/20 04:20 Eos # (Auto) 0.3 10^3/uL (0.0-0.7) 04/30/20 04:20 Baso # (Auto) 0.0 10^3/uL (0.0-0.1) 04/30/20 04:20 Absolute Nucleated RBC 0.00 x10^3/uL 04/30/20 04:20 Nucleated RBC % 0.0 /100WBC 04/30/20 04:20 Sodium 137 mmol/L (135-145) 04/30/20 04:20 Potassium 3.6 mmol/L (3.5-5.0) 04/30/20 04:20 Chloride 106 mmol/L (101-111) 04/30/20 04:20 Carbon Dioxide 24 mmol/L (21-32) 04/30/20 04:20 Anion Gap 7.0 (6-13) 04/30/20 04:20 BUN 24 mg/dL (6-20) H 04/30/20 04:20 Creatinine 2.1 mg/dL (0.6-1.2) H 04/30/20 04:20 Estimated GFR (MDRD) 30 (>89) L 04/30/20 04:20 Glucose 95 mg/dL (70-100) 04/30/20 04:20 Lactic Acid 1.6 mmol/L (0.5-2.2) 04/29/20 17:20 Calcium 7.8 mg/dL (8.5-10.3) L 04/30/20 04:20 Total Bilirubin 0.8 mg/dL (0.2-1.0) 04/29/20 17:20 AST 16 IU/L (10-42) 04/29/20 17:20 ALT 15 IU/L (10-60) 04/29/20 17:20 Alkaline Phosphatase 71 IU/L (42-121) 04/29/20 17:20 B-Natriuretic Peptide 106 pg/mL (5-100) H 04/29/20 17:15 Total Protein 6.9 g/dL (6.7-8.2) 04/29/20 17:20 Albumin 2.5 g/dL (3.2-5.5) L 04/29/20 17:20 Globulin 4.4 g/dL (2.1-4.2) H 04/29/20 17:20 Albumin/Globulin Ratio 0.6 (1.0-2.2) L 04/29/20 17:20 Lipase 27 U/L (22-51) 04/29/20 17:20 TSH 2.99 uIU/mL (0.34-5.60) 04/29/20 17:15 Urine Color DARK YELLOW 04/29/20 17:57 Urine Clarity CLOUDY (CLEAR) 04/29/20 17:57 Urine pH 6.5 PH (5.0-7.5) 04/29/20 17:57 Ur Specific [place] 1.020 (1.002-1.030) 04/29/20 17:57 Urine Protein >=300 mg/dL (NEGATIVE) H 04/29/20 17:57 Urine Glucose (UA) NEGATIVE mg/dL (NEGATIVE) 04/29/20 17:57 Urine Ketones NEGATIVE mg/dL (NEGATIVE) 04/29/20 17:57 Urine Occult Blood LARGE (NEGATIVE) H 04/29/20 17:57 Urine Nitrite NEGATIVE (NEGATIVE) 04/29/20 17:57 Urine Bilirubin NEGATIVE (NEGATIVE) 04/29/20 17:57 Urine Urobilinogen 0.2 (NORMAL) E.U./dL (NORMAL) 04/29/20 17:57 Ur Leukocyte Esterase TRACE (NEGATIVE) H 04/29/20 17:57 Urine RBC TNTC /HPF (0-5) H 04/29/20 17:57 Urine WBC 11-25 /HPF (0-3) H 04/29/20 17:57 Ur Squamous Epith Cells NONE SEEN (<= Few) 04/29/20 17:57 Urine Bacteria Rare /HPF (None Seen) 04/29/20 17:57 Ur Microscopic Review INDICATED 04/29/20 17:57 Urine Culture Comments INDICATED 04/29/20 17:57 Nasal Adenovirus (PCR) NOT DETECTED 04/29/20 18:43 Nasal B. parapertussis DNA (PCR) NOT DETECTED 04/29/20 18:43 Nasal Coronavir 229E PCR NOT DETECTED 04/29/20 18:43 Nasal Coronavir HKU1 PCR NOT DETECTED 04/29/20 18:43 Nasal Coronavir NL63 PCR NOT DETECTED 04/29/20 18:43 Nasal Coronavir OC43 PCR NOT DETECTED 04/29/20 18:43 Nasal Enterovir/Rhinovir PCR NOT DETECTED 04/29/20 18:43 Nasal Influenza B PCR NOT DETECTED 04/29/20 18:43 Nasal Influenza A PCR NOT DETECTED 04/29/20 18:43 Nasal Parainfluen 1 PCR NOT DETECTED 04/29/20 18:43 Nasal Parainfluen 2 PCR NOT DETECTED 04/29/20 18:43 Nasal Parainfluen 3 PCR NOT DETECTED 04/29/20 18:43 Nasal Parainfluen 4 PCR NOT DETECTED 04/29/20 18:43 Nasal RSV (PCR) NOT DETECTED 04/29/20 18:43 Nasal B.pertussis DNA PCR NOT DETECTED 04/29/20 18:43 Nasal C.pneumoniae (PCR) NOT DETECTED 04/29/20 18:43 Mart Human Metapneumo PCR NOT DETECTED 04/29/20 18:43 Nasal M.pneumoniae (PCR) NOT DETECTED 04/29/20 18:43 Nasal SARS-CoV-2 (PCR) NOT DETECTED 04/29/20 18:43 ABX Reporting Has patient been on IV antibiotics over the past 48 hours?: Yes
[2020-04-30] MEDS: TAMSULOSIN 0.4 MG CAPSULE PO SCH (09:30)
[2020-04-30] MEDS: cefTRIAXone 1 GM in SODIUM CHLORIDE 0.9% MINIBAG 100 ML IV SCH (09:30)
[2020-04-30] MEDS: SODIUM CHLORIDE FLUSH 0.9% 10 ML SYRINGE IVP SCH ×2 (09:31→16:06)
--- NOTE | 2020-04-30 11:03 | PHARMACY PROGRESS NOTE ---
- Best Possible Medication History Admit Date and Time: 04/29/20 1837 Processed by: Pharmacy Medication History completed: Yes Patient Interview: Completed Secondary Source(s): Physician records, Pharmacy records, Insurance records (PATIENT INTERVIEWED BY CARDIOVASCULAR INVASIVE SPECIALIST. PATIENT ABLE TO CONFIRM HOME MEDICATIONS) As the person ultimately responsible for medication therapy, providers are able to order a medication from an existing home medication list in [facility] via the "Reconcile Routine" prior to Confirmation of that medication by manager technical support. Such practice is discouraged except when the physician, in their clinical judgment, deems that a medical need exists for a medication without regard to previous use.
--- NOTE | 2020-04-30 12:20 | DISCHARGE SUMMARY ---
Discharge Summary Condition at Discharge: Stable - ALLERGIES Allergies/Adverse Reactions: Allergies Allergy/AdvReac Type Severity Reaction Status Date / Time No Known Drug Allergies Allergy Verified 04/29/20 17:08 - MEDICATIONS Home Medications: Ambulatory Orders Medication Instructions Recorded Confirmed Tamsulosin [Flomax] 0.4 mg PO DAILY 04/29/20 04/29/20 - LABS Result Diagrams: 04/30/20 04:20 04/30/20 04:20
[2020-05-01] MEDS: SODIUM CHLORIDE FLUSH 0.9% 10 ML SYRINGE IVP SCH ×3 (00:27→17:15)
[2020-05-01 05:12] LABS: BASOPHILS % (AUTO) 0.3 %; EOSINOPHILS # (AUTO) 0.2 10^3/uL (0.0-0.7); EOSINOPHILS % (AUTO) 2.4 %; HCT - HEMATOCRIT 28.4 % (42.0-52.0); HGB - HEMOGLOBIN 8.5 g/dL (14.0-18.0); LYMPHOCYTES % (AUTO) 10.3 %; MEAN CORPUSCULAR HEMOGLOBIN 30.5 pg (27.0-31.0); MEAN CORPUSCULAR HGB CONC 29.9 g/dL (32.0-36.0); MEAN CORPUSCULAR VOLUME 101.8 fL (80.0-94.0); MONOCYTES % (AUTO) 10.2 %; NEUTROPHILS # (AUTO) 7.5 10^3/uL (1.5-6.6); NEUTROPHILS % (AUTO) 75.9 %; PLT - PLATELET COUNT 507 10^3/uL (130-450); RED BLOOD COUNT 2.79 10^6/uL (4.70-6.10); RED CELL DISTRIBUTION WIDTH 13.2 % (12.0-15.0); WHITE BLOOD COUNT 9.8 x10^3/uL (4.8-10.8)
[2020-05-01 05:37] LABS: CALCIUM 7.9 mg/dL (8.5-10.3); CREATININE 2.3 mg/dL (0.6-1.2)
[2020-05-01 05:48] LABS: FOLATE 3.29 ng/mL (5.90 - >24.8)
[2020-05-01] MEDS: PANTOPRAZOLE 40 MG TABLET PO SCH (06:01)
[2020-05-01] MEDS: SODIUM CHLORIDE 0.9% 1,000 ML IV SCH ×2 (06:01→18:04)
--- NOTE | 2020-05-01 07:56 | PROVIDER PROGRESS NOTE ---
Assessment/Plan - Problem List (2) UTI (urinary tract infection) Qualifiers: Urinary tract infection type: acute cystitis Hematuria presence: with hematuria Qualified Code(s): N30.01 - Acute cystitis with hematuria Assessment/Plan: URCC was polymicrobial those not further characterized Will continue rocephin (3) Acute kidney injury Assessment/Plan: There has been no improvement in patient's renal function. Creatinine today is 2.3 Patient was decreased from 1 25-100 mils per hour due to mild dyspnea. Renal ultrasound showed bilateral hydronephrosis with multiple renal cysts. We will order CT abdomen pelvis without contrast. (4) Dehydration Assessment/Plan: Patient receiving IV hydration with normal saline at 100 mL/h. (5) BPH (benign prostatic hyperplasia) Assessment/Plan: Tamsulosin 0.4mg po daily (6) Hematuria Assessment/Plan: Patient has had hematuria since admission. Renal ultrasound was negative for any renal calculi. However multiple renal cysts were noted. Will order CT of the abdomen pelvis without contrast. - Current Meds Current Meds: Current Medications Generic Name Dose Route Start Last Admin Trade Name Freq PRN Reason Stop Dose Admin Sodium Chloride 1,000 mls @ 125 mls/hr 04/29/20 19:00 05/01/20 06:01 Normal Saline 0.9% IV 125 mls/hr .Q8H FAZAL Administration Ceftriaxone Sodium 1 gm/ 100 mls @ 200 mls/hr 04/30/20 09:00 04/30/20 10:00 Sodium Chloride IV Infused DAILY FAZAL Infusion Pantoprazole Sodium 40 mg 04/30/20 07:00 05/01/20 06:01 Pantoprazole 40 Mg Tablet PO 40 mg QDAC FAZAL Administration Sodium Chloride 10 ml 04/29/20 18:37 04/29/20 19:47 Sodium Chloride Flush 0.9% 10 Ml Syringe IVP 10 ml PRN PRN Administration NEEDED PER PROVIDER ORDERS Sodium Chloride 10 ml 04/30/20 01:00 05/01/20 00:27 Sodium Chloride Flush 0.9% 10 Ml Syringe IVP Not Given 0100,0900,1700 FAZAL Tamsulosin HCl 0.4 mg 04/30/20 09:00 04/30/20 09:30 Tamsulosin 0.4 Mg Capsule PO 0.4 mg DAILY FAZAL Administration - Lab Result Fish Bone Diagrams: 05/01/20 03:53 05/01/20 03:53 - Additional Planning My Orders: My Active Orders 04/30/20 07:00 Pantoprazole [Protonix] 40 mg PO QDAC 04/30/20 09:00 cefTRIAXone [Rocephin] 1 gm Sodium Chloride 0.9% Minibag [Normal Saline 0.9% Minibag] 100 ml IV DAILY 04/30/20 Dinner Soft Mechanical Diet [DIET] 05/01/20 CULTURE, BLOOD #1 [RM] Stat CULTURE, BLOOD #2 [RM] Stat 05/01/20 07:51 Retroperitoneal Limited [US] Routine 05/01/20 07:52 Chest 1 View X-Ray [XR] Stat 05/02/20 05:00 BMP - BASIC METABOLIC PANEL [CHEM] DAILYLAB CBC - COMP BLD CT W/AUTO DIFF [HEME] DAILYLAB 05/03/20 05:00 BMP - BASIC METABOLIC PANEL [CHEM] DAILYLAB CBC - COMP BLD CT W/AUTO DIFF [HEME] DAILYLAB Subjective - Subjective Patient Reports: Other (Patient was alert and oriented X4 at time of exam. He was having breakfast. It was reported that the patient had a mild wheeze however he appeared to be breathing comfortably on room air. He denied chest pain, dyspnea, abdominal pain. He had a temperature of 101.1F today) Objective Vital Signs: Vital Signs - 24 hr 04/30/20 04/30/20 04/30/20 14:01 16:24 21:00 Temperature 37.3 C 36.6 C 36.8 C Heart Rate [ 96 82 83 Brachial] Respiratory 24 18 16 Rate Blood Pressure 142/59 H 110/42 L 140/50 H [Left Brachial artery] Blood Pressure [Right Brachial artery] O2 Saturation 96 97 94 05/01/20 05/01/20 01:00 05:09 Temperature 37.4 C 37.3 C Heart Rate [ 77 81 Brachial] Respiratory 24 21 Rate Blood Pressure [Left Brachial artery] Blood Pressure 140/55 H 148/60 H [Right Brachial artery] O2 Saturation 96 93 Oxygen O2 Source Room air I&O (Last 24 Hrs): Intake and Output Totals x24h 04/29/20 04/30/20 05/01/20 23:59 23:59 23:59 Intake Total 1100 4283.333 1000 Output Total 50 420 565 Balance 1050 3863.333 435 General: Alert, Oriented x3, Cooperative, No acute distress HEENT: PERRLA, EOMI Neck: Supple, No JVD Neuro: Alert, Non Focal, Oriented Times 3 Cardiovascular: Regular rate, Normal S1, Normal S2 Respiratory: Chest non-tender, No respiratory distress, Breath sounds nml Abdomen: Normal bowel sounds, Soft, No tenderness, No masses Extremities: No clubbing, No cyanosis, No edema Skin: No rashes - Results Results: Laboratory Results WBC 9.8 x10^3/uL (4.8-10.8) 05/01/20 03:53 RBC 2.79 10^6/uL (4.70-6.10) L 05/01/20 03:53 Hgb 8.5 g/dL (14.0-18.0) L 05/01/20 03:53 Hct 28.4 % (42.0-52.0) L 05/01/20 03:53 MCV 101.8 fL (80.0-94.0) H 05/01/20 03:53 MCH 30.5 pg (27.0-31.0) 05/01/20 03:53 MCHC 29.9 g/dL (32.0-36.0) L 05/01/20 03:53 RDW 13.2 % (12.0-15.0) 05/01/20 03:53 Plt Count 507 10^3/uL (130-450) H 05/01/20 03:53 MPV 10.0 fL (7.4-11.4) 05/01/20 03:53 Neut # (Auto) 7.5 10^3/uL (1.5-6.6) H 05/01/20 03:53 Lymph # (Auto) 1.0 10^3/uL (1.5-3.5) L 05/01/20 03:53 [place] # (Auto) 1.0 10^3/uL (0.0-1.0) 05/01/20 03:53 Eos # (Auto) 0.2 10^3/uL (0.0-0.7) 05/01/20 03:53 Baso # (Auto) 0.0 10^3/uL (0.0-0.1) 05/01/20 03:53 Absolute Nucleated RBC 0.00 x10^3/uL 05/01/20 03:53 Nucleated RBC % 0.0 /100WBC 05/01/20 03:53 Sodium 139 mmol/L (135-145) 05/01/20 03:53 Potassium 4.0 mmol/L (3.5-5.0) 05/01/20 03:53 Chloride 109 mmol/L (101-111) 05/01/20 03:53 Carbon Dioxide 22 mmol/L (21-32) 05/01/20 03:53 Anion Gap 8.0 (6-13) 05/01/20 03:53 BUN 27 mg/dL (6-20) H 05/01/20 03:53 Creatinine 2.3 mg/dL (0.6-1.2) H 05/01/20 03:53 Estimated GFR (MDRD) 27 (>89) L 05/01/20 03:53 Glucose 122 mg/dL (70-100) H 05/01/20 03:53 Lactic Acid 1.6 mmol/L (0.5-2.2) 04/29/20 17:20 Calcium 7.9 mg/dL (8.5-10.3) L 05/01/20 03:53 Iron 13 ug/dL (45-182) L 05/01/20 03:53 TIBC 122 ug/dL (250-450) L 05/01/20 03:53 % Saturation 11 % (20-50) L 05/01/20 03:53 Transferrin 87 mg/dL (180-329) L 05/01/20 03:53 Total Bilirubin 0.8 mg/dL (0.2-1.0) 04/29/20 17:20 AST 16 IU/L (10-42) 04/29/20 17:20 ALT 15 IU/L (10-60) 04/29/20 17:20 Alkaline Phosphatase 71 IU/L (42-121) 04/29/20 17:20 B-Natriuretic Peptide 106 pg/mL (5-100) H 04/29/20 17:15 Total Protein 6.9 g/dL (6.7-8.2) 04/29/20 17:20 Albumin 2.5 g/dL (3.2-5.5) L 04/29/20 17:20 Globulin 4.4 g/dL (2.1-4.2) H 04/29/20 17:20 Albumin/Globulin Ratio 0.6 (1.0-2.2) L 04/29/20 17:20 Lipase 27 U/L (22-51) 04/29/20 17:20 Vitamin B12 206 pg/mL (180-914) 05/01/20 03:53 Folate 3.29 ng/mL (5.90 - >24.8) L 05/01/20 03:53 TSH 2.99 uIU/mL (0.34-5.60) 04/29/20 17:15 Urine Color DARK YELLOW 04/29/20 17:57 Urine Clarity CLOUDY (CLEAR) 04/29/20 17:57 Urine pH 6.5 PH (5.0-7.5) 04/29/20 17:57 Ur Specific [place] 1.020 (1.002-1.030) 04/29/20 17:57 Urine Protein >=300 mg/dL (NEGATIVE) H 04/29/20 17:57 Urine Glucose (UA) NEGATIVE mg/dL (NEGATIVE) 04/29/20 17:57 Urine Ketones NEGATIVE mg/dL (NEGATIVE) 04/29/20 17:57 Urine Occult Blood LARGE (NEGATIVE) H 04/29/20 17:57 Urine Nitrite NEGATIVE (NEGATIVE) 04/29/20 17:57 Urine Bilirubin NEGATIVE (NEGATIVE) 04/29/20 17:57 Urine Urobilinogen 0.2 (NORMAL) E.U./dL (NORMAL) 04/29/20 17:57 Ur Leukocyte Esterase TRACE (NEGATIVE) H 04/29/20 17:57 Urine RBC TNTC /HPF (0-5) H 04/29/20 17:57 Urine WBC 11-25 /HPF (0-3) H 04/29/20 17:57 Ur Squamous Epith Cells NONE SEEN (<= Few) 04/29/20 17:57 Urine Bacteria Rare /HPF (None Seen) 04/29/20 17:57 Ur Microscopic Review INDICATED 04/29/20 17:57 Urine Culture Comments INDICATED 04/29/20 17:57 Nasal Adenovirus (PCR) NOT DETECTED 04/29/20 18:43 Nasal B. parapertussis DNA (PCR) NOT DETECTED 04/29/20 18:43 Nasal Coronavir 229E PCR NOT DETECTED 04/29/20 18:43 Nasal Coronavir HKU1 PCR NOT DETECTED 04/29/20 18:43 Nasal Coronavir NL63 PCR NOT DETECTED 04/29/20 18:43 Nasal Coronavir OC43 PCR NOT DETECTED 04/29/20 18:43 Nasal Enterovir/Rhinovir PCR NOT DETECTED 04/29/20 18:43 Nasal Influenza B PCR NOT DETECTED 04/29/20 18:43 Nasal Influenza A PCR NOT DETECTED 04/29/20 18:43 Nasal Parainfluen 1 PCR NOT DETECTED 04/29/20 18:43 Nasal Parainfluen 2 PCR NOT DETECTED 04/29/20 18:43 Nasal Parainfluen 3 PCR NOT DETECTED 04/29/20 18:43 Nasal Parainfluen 4 PCR NOT DETECTED 04/29/20 18:43 Nasal RSV (PCR) NOT DETECTED 04/29/20 18:43 Nasal B.pertussis DNA PCR NOT DETECTED 04/29/20 18:43 Nasal C.pneumoniae (PCR) NOT DETECTED 04/29/20 18:43 Mart Human Metapneumo PCR NOT DETECTED 04/29/20 18:43 Nasal M.pneumoniae (PCR) NOT DETECTED 04/29/20 18:43 Nasal SARS-CoV-2 (PCR) NOT DETECTED 04/29/20 18:43 ABX Reporting Has patient been on IV antibiotics over the past 48 hours?: Yes
[2020-05-01] MEDS: TAMSULOSIN 0.4 MG CAPSULE PO SCH (08:36)
[2020-05-01] MEDS: cefTRIAXone 1 GM in SODIUM CHLORIDE 0.9% MINIBAG 100 ML IV SCH (08:37)
--- NOTE | 2020-05-01 09:02 | XRAY Report ---
PROCEDURE: Chest 1 View X-Ray INDICATIONS: wheezing TECHNIQUE: One view of the chest was acquired. COMPARISON: Chest x-ray 04/29/2020 FINDINGS: Surgical changes and devices: None. Lungs and pleura: No pleural effusions or pneumothorax. Lungs are clear. Mediastinum: Mediastinal contours appear normal. Heart size is normal. Bones and chest wall: No suspicious bony lesions. Overlying soft tissues appear unremarkable. IMPRESSION: No acute pulmonary process. Previous radiodensities are no longer visualized. Reviewed by: Sindy Sanchez MD on 05/01/2020 9:01 AM PST Approved by: Sindy Sanchez MD on 05/01/2020 9:01 AM [facility] Station ID: [id number]
[2020-05-01] MEDS: PRENATAL VITAMIN TABLET PO SCH (11:06)
--- NOTE | 2020-05-01 11:47 | Ultrasound Report ---
PROCEDURE: Retroperitoneal INDICATIONS: acute kidney injury TECHNIQUE: Real-time scanning was performed of the kidneys and bladder, with image documentation. COMPARISON: None. FINDINGS: Kidneys: Kidneys are normal in size. Right kidney measures 10.1 cm long; left kidney measures 14.1 cm long. Right renal cortical thickness is 1.3 cm; left renal cortical thickness is 0.9 cm. No salty d masses or nephrolithiasis. Multiple bilateral renal cysts are seen, largest of which measures up t o 4.5 cm at the inferior pole of left kidney. There is moderate bilateral hydronephrosis. Bladder: Pre-void bladder volume is 77 mL. Post-void residual is 62 mL. Pre-void images demonstrat e no intraluminal masses or stones. On pre-void images, no ureteral jets are noted with color Dopple r interrogation. (Of note, ureteral jets may not be detectable in up to 25% of cases due to insuffic ient differences in specific gravity between ureteral and bladder urine). The prostate is enlarged, measuring 6.5 x 6.5 x 7.4 cm (164 mL). Miscellaneous: No free pelvic fluid. IMPRESSION: 1. Moderate bilateral hydronephrosis. No ureteral calculus is seen. 2. Prostatomegaly. Reviewed by: John Martinez MD on 05/01/2020 11:46 AM [facility] Approved by: John Martinez MD on 05/01/2020 11:46 AM [facility] Station ID: [id number]
--- NOTE | 2020-05-01 16:27 | CT Report ---
PROCEDURE: Abdomen/Pelvis WO INDICATIONS: SONIA, Hydronephrosis on US. ?Obstruction ?stone TECHNIQUE: Noncontrast 5 mm thick sections acquired from the diaphragms to the symphysis. 5 mm coronal and sagi ttal reformats were then performed. For radiation dose reduction, the following was used: automated exposure control, adjustment of mA and/or kV according to patient size. COMPARISON: Same day renal ultrasound. CT chest, abdomen and pelvis 08/26/2007. FINDINGS: Image quality: Excellent. ABDOMEN: Lung bases: Extensive emphysematous change. Trace bilateral pleural effusions. Heart size is normal. Solid organs: Liver and spleen are normal in size. Gallbladder is decompressed. No calcified gallst ones. Pancreas is normal in contours. No adrenal nodules. Kidneys are normal in size. Bilateral low-density renal cyst. At least 2 nonobstructing kidney stones bilaterally which measure 3 mm or less. No obstructing kidney stones. There is moderate bilateral hy droureteronephrosis. Stranding surrounding both kidneys. Peritoneum and bowel: Unenhanced bowel loops demonstrate normal wall thickness and caliber. Prominen t stool the colon. The appendix is not identified. Diverticulosis. No free fluid or air. Nodes and vessels: No retroperitoneal or mesenteric adenopathy by size criteria. Aorta and inferior vena cava are normal in caliber. Miscellaneous: No ventral hernias. PELVIS: Genitourinary: This is difficult to evaluate without IV contrast. Soft tissue density at the base of the urinary bladder. Prostatomegaly with suspected median lobe hypertrophy. Suspect left bladder div erticulum. Miscellaneous: No inguinal hernias or adenopathy. Bones: No suspicious bony lesions. L3 compression fracture. IMPRESSION: 1. Moderate bilateral hydroureteronephrosis. Hydronephrosis likely due to bladder outlet obstruction. 2. Marked prostatomegaly with suspected median lobe hypertrophy. This likely accounts for the soft ti ssue density at the base of the urinary bladder. This area is difficult to evaluate without IV contra st. Malignant neoplasm cannot be excluded. 3. No obstructing kidney stones. Small bilateral nonobstructing kidney stones. 4. Prominent stool the colon. 5. L3 compression fracture. Reviewed by: Tigre Weathers MD on 05/01/2020 4:26 PM PST Approved by: Tigre Weathers MD on 05/01/2020 4:26 PM PST Station ID: [id number]
[2020-05-02] MEDS: SODIUM CHLORIDE 0.9% 1,000 ML IV SCH ×3 (03:39→14:54)
[2020-05-02] MEDS: SODIUM CHLORIDE FLUSH 0.9% 10 ML SYRINGE IVP SCH ×3 (04:46→17:32)
[2020-05-02] MEDS: PANTOPRAZOLE 40 MG TABLET PO SCH (06:42)
[2020-05-02 07:32] LABS: BASOPHILS % (AUTO) 0.3 %; EOSINOPHILS # (AUTO) 0.3 10^3/uL (0.0-0.7); HCT - HEMATOCRIT 27.3 % (42.0-52.0); HGB - HEMOGLOBIN 8.2 g/dL (14.0-18.0); LYMPHOCYTES # (AUTO) 0.9 10^3/uL (1.5-3.5); LYMPHOCYTES % (AUTO) 6.7 %; MONOCYTES % (AUTO) 7.6 %; NEUTROPHILS # (AUTO) 10.5 10^3/uL (1.5-6.6); NEUTROPHILS % (AUTO) 82.4 %; PLT - PLATELET COUNT 498 10^3/uL (130-450); RED BLOOD COUNT 2.73 10^6/uL (4.70-6.10); RED CELL DISTRIBUTION WIDTH 13.4 % (12.0-15.0); WHITE BLOOD COUNT 12.8 x10^3/uL (4.8-10.8)
[2020-05-02 07:44] LABS: CALCIUM 8.2 mg/dL (8.5-10.3); CREATININE 2.1 mg/dL (0.6-1.2); POTASSIUM 3.9 mmol/L (3.5-5.0)
[2020-05-02] MEDS: cefTRIAXone 1 GM in SODIUM CHLORIDE 0.9% MINIBAG 100 ML IV SCH (08:16)
[2020-05-02] MEDS: TAMSULOSIN 0.4 MG CAPSULE PO SCH (08:16)
[2020-05-02] MEDS: PRENATAL VITAMIN TABLET PO SCH (08:16)
--- NOTE | 2020-05-02 10:28 | PROVIDER PROGRESS NOTE ---
Assessment/Plan - Problem List (1) Acute kidney injury Assessment/Plan: CT abdomen/pelvis without contrast done yesterday showed bladder outlet obstruction with moderate hydronephrosis. Prostatomegaly was also noted. Patient's creatinine today is 2.1 Patient had a Banegas catheter placed yesterday with over 1 L of urine output so far. Initially was missael blood and currently hematuria. It is slowly clearing. I spoke with a urologist (Dr Galeas) who advised continuing IV hydration which is currently going at 100 mL/h. Expect creatinine to improve over time. If no improvement her recommendation is to repeat renal ultrasound. Further recommendation is to subsequently discharged patient with the Banegas catheter in place when he is ready for discharge and for him to follow-up with urology outpatient. (2) Bladder outlet obstruction Assessment/Plan: CT abd/pel w/o cointrast showed prostatomegaly, bladder outlet obstruction, moderate hydronephrosis, could not rule out bladder malignancy. Patient had a Banegas catheter placed yesterday with over 1 L of urine output so far. Initially it was missael blood and currently hematuria. It is slowly clearing. I spoke with a urologist (Dr Galeas) at [facility] who advised continuing IV hydration which is currently going at 100 mL/h. Expect renal function to improve over time. If no improvement her recommendation is to repeat renal ultrasound. Further recommendation is to subsequently discharged patient with the Banegas catheter in place when he is ready for discharge and for him to follow-up with urology outpatient. (3) Hydronephrosis Assessment/Plan: Likely due to bladder outlet obstruction. Banegas catheter in place. Patient has put out over 1 L of urine. Anticipating improvement. If no improvement in renal function, will repeat renal ultrasound. (5) UTI (urinary tract infection) Qualifiers: Urinary tract infection type: acute cystitis Hematuria presence: with hematuria Qualified Code(s): N30.01 - Acute cystitis with hematuria Assessment/Plan: URCC was polymicrobial those not further characterized Will continue rocephin for now. (6) Dehydration Assessment/Plan: Improved/ Resolved. Patient continues to receive IV hydration with normal saline at 100ml/hr (7) BPH (benign prostatic hyperplasia) Assessment/Plan: Banegas catheter in place due to bladder outlet obstruction Continue tamsulosin 0.4mg daily Patient will follow up with Urology outpatient upon discharge (8) Hematuria Assessment/Plan: Banegas catheter in place. IV hydration Slowly clearing. - Current Meds Current Meds: Current Medications Generic Name Dose Route Start Last Admin Trade Name Liliana PRN Reason Stop Dose Admin Ceftriaxone Sodium 1 gm/ 100 mls @ 200 mls/hr 04/30/20 09:00 05/02/20 08:16 Sodium Chloride IV 200 mls/hr DAILY FAZAL Administration Sodium Chloride 1,000 mls @ 100 mls/hr 05/01/20 08:19 05/02/20 08:11 Normal Saline 0.9% IV Not Given .Q10H FAZAL Pantoprazole Sodium 40 mg 04/30/20 07:00 05/02/20 06:42 Pantoprazole 40 Mg Tablet PO 40 mg QDAC FAZAL Administration Multivit/Folic Acid/Iron 1 tab 05/01/20 09:00 05/02/20 08:16 Vitamin Tablet PO 1 tab DAILYWM FAZAL Administration Sodium Chloride 10 ml 04/29/20 18:37 04/29/20 19:47 Sodium Chloride Flush 0.9% 10 Ml Syringe IVP 10 ml PRN PRN Administration NEEDED PER PROVIDER ORDERS Sodium Chloride 10 ml 04/30/20 01:00 05/02/20 08:16 Sodium Chloride Flush 0.9% 10 Ml Syringe IVP Not Given 0100,0900,1700 FAZAL Tamsulosin HCl 0.4 mg 04/30/20 09:00 05/02/20 08:16 Tamsulosin 0.4 Mg Capsule PO 0.4 mg DAILY FAZAL Administration - Lab Result Fish Bone Diagrams: 05/02/20 06:44 05/02/20 06:44 - Additional Planning My Orders: My Active Orders 05/01/20 17:53 Banegas Insertion [RC] QSHIFT 05/03/20 05:00 BMP - BASIC METABOLIC PANEL [CHEM] DAILYLAB CBC - COMP BLD CT W/AUTO DIFF [HEME] DAILYLAB Subjective - Subjective Patient Reports: Other (On the table in bed today. He denied any significant c omplaints. Banegas catheter is in place. Patient has had about 1500 mils output since placement. Hematuria is appreciable.) Objective Vital Signs: Vital Signs - 24 hr 05/01/20 05/01/20 05/01/20 12:00 16:12 20:12 Temperature 37.3 C 36.8 C 36.7 C Heart Rate [ 96 102 H 100 Brachial] Respiratory 18 17 18 Rate Blood Pressure 175/68 H 165/62 H 143/62 H [Right Brachial artery] O2 Saturation 94 95 95 05/02/20 05/02/20 05/02/20 00:07 05:00 08:03 Temperature 37.4 C 37.4 C 37 C Heart Rate [ 99 90 94 Brachial] Respiratory 20 18 20 Rate Blood Pressure 151/51 H 135/46 H 163/77 H [Right Brachial artery] O2 Saturation 94 95 94 Oxygen O2 Source Room air I&O (Last 24 Hrs): Intake and Output Totals x24h 04/30/20 05/01/20 05/02/20 23:59 23:59 23:59 Intake Total 4283.333 2710.000 1385.333 Output Total 420 1515 550 Balance 3863.333 1195.000 835.333 General: Alert, Oriented x3, Cooperative, Mild distress HEENT: Atraumatic, PERRLA, EOMI Neck: Supple, No JVD Neuro: Alert, Non Focal, Oriented Times 3 Cardiovascular: Regular rate, Normal S1, Normal S2 Respiratory: Chest non-tender, No respiratory distress, Breath sounds nml Abdomen: Normal bowel sounds, Soft, No tenderness Genitourinary: Other (hematuria) Extremities: No clubbing, No cyanosis, No edema Skin: No rashes, No breakdown - Results Results: Laboratory Results WBC 12.8 x10^3/uL (4.8-10.8) H 05/02/20 06:44 RBC 2.73 10^6/uL (4.70-6.10) L 05/02/20 06:44 Hgb 8.2 g/dL (14.0-18.0) L 05/02/20 06:44 Hct 27.3 % (42.0-52.0) L 05/02/20 06:44 MCV 100.0 fL (80.0-94.0) H 05/02/20 06:44 MCH 30.0 pg (27.0-31.0) 05/02/20 06:44 MCHC 30.0 g/dL (32.0-36.0) L 05/02/20 06:44 RDW 13.4 % (12.0-15.0) 05/02/20 06:44 Plt Count 498 10^3/uL (130-450) H 05/02/20 06:44 MPV 10.0 fL (7.4-11.4) 05/02/20 06:44 Neut # (Auto) 10.5 10^3/uL (1.5-6.6) H 05/02/20 06:44 Lymph # (Auto) 0.9 10^3/uL (1.5-3.5) L 05/02/20 06:44 [place] # (Auto) 1.0 10^3/uL (0.0-1.0) 05/02/20 06:44 Eos # (Auto) 0.3 10^3/uL (0.0-0.7) 05/02/20 06:44 Baso # (Auto) 0.0 10^3/uL (0.0-0.1) 05/02/20 06:44 Absolute Nucleated RBC 0.00 x10^3/uL 05/02/20 06:44 Nucleated RBC % 0.0 /100WBC 05/02/20 06:44 Sodium 141 mmol/L (135-145) 05/02/20 06:44 Potassium 3.9 mmol/L (3.5-5.0) 05/02/20 06:44 Chloride 112 mmol/L (101-111) H 05/02/20 06:44 Carbon Dioxide 22 mmol/L (21-32) 05/02/20 06:44 Anion Gap 7.0 (6-13) 05/02/20 06:44 BUN 32 mg/dL (6-20) H 05/02/20 06:44 Creatinine 2.1 mg/dL (0.6-1.2) H 05/02/20 06:44 Estimated GFR (MDRD) 30 (>89) L 05/02/20 06:44 Glucose 147 mg/dL (70-100) H 05/02/20 06:44 Lactic Acid 1.6 mmol/L (0.5-2.2) 04/29/20 17:20 Calcium 8.2 mg/dL (8.5-10.3) L 05/02/20 06:44 Iron 13 ug/dL (45-182) L 05/01/20 03:53 TIBC 122 ug/dL (250-450) L 05/01/20 03:53 % Saturation 11 % (20-50) L 05/01/20 03:53 Transferrin 87 mg/dL (180-329) L 05/01/20 03:53 Total Bilirubin 0.8 mg/dL (0.2-1.0) 04/29/20 17:20 AST 16 IU/L (10-42) 04/29/20 17:20 ALT 15 IU/L (10-60) 04/29/20 17:20 Alkaline Phosphatase 71 IU/L (42-121) 04/29/20 17:20 B-Natriuretic Peptide 106 pg/mL (5-100) H 04/29/20 17:15 Total Protein 6.9 g/dL (6.7-8.2) 04/29/20 17:20 Albumin 2.5 g/dL (3.2-5.5) L 04/29/20 17:20 Globulin 4.4 g/dL (2.1-4.2) H 04/29/20 17:20 Albumin/Globulin Ratio 0.6 (1.0-2.2) L 04/29/20 17:20 Lipase 27 U/L (22-51) 04/29/20 17:20 Vitamin B12 206 pg/mL (180-914) 05/01/20 03:53 Folate 3.29 ng/mL (5.90 - >24.8) L 05/01/20 03:53 TSH 2.99 uIU/mL (0.34-5.60) 04/29/20 17:15 Urine Color DARK YELLOW 04/29/20 17:57 Urine Clarity CLOUDY (CLEAR) 04/29/20 17:57 Urine pH 6.5 PH (5.0-7.5) 04/29/20 17:57 Ur Specific [place] 1.020 (1.002-1.030) 04/29/20 17:57 Urine Protein >=300 mg/dL (NEGATIVE) H 04/29/20 17:57 Urine Glucose (UA) NEGATIVE mg/dL (NEGATIVE) 04/29/20 17:57 Urine Ketones NEGATIVE mg/dL (NEGATIVE) 04/29/20 17:57 Urine Occult Blood LARGE (NEGATIVE) H 04/29/20 17:57 Urine Nitrite NEGATIVE (NEGATIVE) 04/29/20 17:57 Urine Bilirubin NEGATIVE (NEGATIVE) 04/29/20 17:57 Urine Urobilinogen 0.2 (NORMAL) E.U./dL (NORMAL) 04/29/20 17:57 Ur Leukocyte Esterase TRACE (NEGATIVE) H 04/29/20 17:57 Urine RBC TNTC /HPF (0-5) H 04/29/20 17:57 Urine WBC 11-25 /HPF (0-3) H 04/29/20 17:57 Ur Squamous Epith Cells NONE SEEN (<= Few) 04/29/20 17:57 Urine Bacteria Rare /HPF (None Seen) 04/29/20 17:57 Ur Microscopic Review INDICATED 04/29/20 17:57 Urine Culture Comments INDICATED 04/29/20 17:57 Nasal Adenovirus (PCR) NOT DETECTED 04/29/20 18:43 Nasal B. parapertussis DNA (PCR) NOT DETECTED 04/29/20 18:43 Nasal Coronavir 229E PCR NOT DETECTED 04/29/20 18:43 Nasal Coronavir HKU1 PCR NOT DETECTED 04/29/20 18:43 Nasal Coronavir NL63 PCR NOT DETECTED 04/29/20 18:43 Nasal Coronavir OC43 PCR NOT DETECTED 04/29/20 18:43 Nasal Enterovir/Rhinovir PCR NOT DETECTED 04/29/20 18:43 Nasal Influenza B PCR NOT DETECTED 04/29/20 18:43 Nasal Influenza A PCR NOT DETECTED 04/29/20 18:43 Nasal Parainfluen 1 PCR NOT DETECTED 04/29/20 18:43 Nasal Parainfluen 2 PCR NOT DETECTED 04/29/20 18:43 Nasal Parainfluen 3 PCR NOT DETECTED 04/29/20 18:43 Nasal Parainfluen 4 PCR NOT DETECTED 04/29/20 18:43 Nasal RSV (PCR) NOT DETECTED 04/29/20 18:43 Nasal B.pertussis DNA PCR NOT DETECTED 04/29/20 18:43 Nasal C.pneumoniae (PCR) NOT DETECTED 04/29/20 18:43 Mart Human Metapneumo PCR NOT DETECTED 04/29/20 18:43 Nasal M.pneumoniae (PCR) NOT DETECTED 04/29/20 18:43 Nasal SARS-CoV-2 (PCR) NOT DETECTED 04/29/20 18:43 ABX Reporting Has patient been on IV antibiotics over the past 48 hours?: Yes
[2020-05-03] MEDS: SODIUM CHLORIDE FLUSH 0.9% 10 ML SYRINGE IVP SCH ×3 (00:18→18:33)
[2020-05-03] MEDS: SODIUM CHLORIDE 0.9% 1,000 ML IV SCH (00:21)
[2020-05-03 05:43] LABS: BASOPHILS % (AUTO) 0.3 %; EOSINOPHILS # (AUTO) 0.7 10^3/uL (0.0-0.7); EOSINOPHILS % (AUTO) 5.4 %; HCT - HEMATOCRIT 27.2 % (42.0-52.0); HGB - HEMOGLOBIN 8.3 g/dL (14.0-18.0); LYMPHOCYTES # (AUTO) 1.1 10^3/uL (1.5-3.5); MEAN CORPUSCULAR HEMOGLOBIN 30.5 pg (27.0-31.0); MEAN CORPUSCULAR HGB CONC 30.5 g/dL (32.0-36.0); MEAN PLATELET VOLUME 9.7 fL (7.4-11.4); MONOCYTES % (AUTO) 8.7 %; NEUTROPHILS % (AUTO) 75.5 %; PLT - PLATELET COUNT 499 10^3/uL (130-450); RED BLOOD COUNT 2.72 10^6/uL (4.70-6.10); RED CELL DISTRIBUTION WIDTH 13.9 % (12.0-15.0); WHITE BLOOD COUNT 11.9 x10^3/uL (4.8-10.8)
[2020-05-03 06:01] LABS: CALCIUM 8.4 mg/dL (8.5-10.3); CREATININE 1.9 mg/dL (0.6-1.2); POTASSIUM 4.1 mmol/L (3.5-5.0)
[2020-05-03] MEDS: PANTOPRAZOLE 40 MG TABLET PO SCH (06:48)
--- NOTE | 2020-05-03 07:47 | PROVIDER PROGRESS NOTE ---
Assessment/Plan - Problem List (1) Acute kidney injury Assessment/Plan: Improved. Patient's creatinine today was 1.9 with an eGFR of 34. Hematuria has resolved. Urine in Campbell catheter is clear. IV hydration currently held due to mild dyspnea. We will to monitor renal function. If patient continues to improve we will consider discharge tomorrow. (2) Bladder outlet obstruction Assessment/Plan: Patient's creatinine today was 1.9 with an eGFR of 34. Hematuria has resolved. Urine in Campbell catheter is clear. IV hydration currently held due to mild dyspnea. We will to monitor renal function. If patient continues to improve we will consider discharge tomorrow. (3) Hydronephrosis Assessment/Plan: Patient's renal function is improved. Creatinine 1.9 and estimated GFR 34. Anticipate further improvement. We will maintain Campbell catheter in place. (5) UTI (urinary tract infection) Qualifiers: Urinary tract infection type: acute cystitis Hematuria presence: with hematuria Qualified Code(s): N30.01 - Acute cystitis with hematuria Assessment/Plan: URCC was polymicrobial those not further characterized Will continue rocephin for now. (7) BPH (benign prostatic hyperplasia) Assessment/Plan: Campbell catheter in place due to bladder outlet obstruction Continue tamsulosin 0.4mg daily Patient will follow up with Urology outpatient upon discharge (8) Hematuria Assessment/Plan: Improved/resolved. Maintain campbell catheter in place. - Current Meds Current Meds: Current Medications Generic Name Dose Route Start Last Admin Trade Name Freq PRN Reason Stop Dose Admin Ceftriaxone Sodium 1 gm/ 100 mls @ 200 mls/hr 04/30/20 09:00 05/02/20 08:46 Sodium Chloride IV Infused DAILY FAZAL Infusion Sodium Chloride 1,000 mls @ 100 mls/hr 05/01/20 08:19 05/03/20 00:21 Normal Saline 0.9% IV 100 mls/hr .Q10H FAZAL Administration Pantoprazole Sodium 40 mg 04/30/20 07:00 05/03/20 06:48 Pantoprazole 40 Mg Tablet PO Not Given QDAC FAZAL Multivit/Folic Acid/Iron 1 tab 05/01/20 09:00 05/02/20 08:16 Vitamin Tablet PO 1 tab DAILYWM FAZAL Administration Sodium Chloride 10 ml 04/29/20 18:37 04/29/20 19:47 Sodium Chloride Flush 0.9% 10 Ml Syringe IVP 10 ml PRN PRN Administration NEEDED PER PROVIDER ORDERS Sodium Chloride 10 ml 04/30/20 01:00 05/03/20 00:18 Sodium Chloride Flush 0.9% 10 Ml Syringe IVP Not Given 0100,0900,1700 FAZAL Tamsulosin HCl 0.4 mg 04/30/20 09:00 05/02/20 08:16 Tamsulosin 0.4 Mg Capsule PO 0.4 mg DAILY FAZAL Administration - Lab Result Fish Bone Diagrams: 05/03/20 05:23 05/03/20 05:23 Subjective - Subjective Patient Reports: Other (Patient resting comfortably in bed. He reported not sleeping well last night. He appeared mildly dyspneic but not hypoxic. Hematuria is resolved He denied any other complaints.) Objective Vital Signs: Vital Signs - 24 hr 05/02/20 05/02/20 05/02/20 08:03 12:43 16:52 Temperature 37 C 36.8 C 36.9 C Heart Rate [ 94 88 Brachial] Heart Rate [ 87 Radial] Respiratory 20 22 24 Rate Blood Pressure 146/47 H [Left Brachial artery] Blood Pressure 163/77 H 127/54 L [Right Brachial artery] O2 Saturation 94 95 94 05/02/20 05/03/20 05/03/20 20:22 00:05 05:00 Temperature 37.1 C 37.5 C 37.2 C Heart Rate [ Brachial] Heart Rate [ 93 96 77 Radial] Respiratory 24 20 16 Rate Blood Pressure [Left Brachial artery] Blood Pressure 125/65 139/60 H 130/56 L [Right Brachial artery] O2 Saturation 94 95 93 Oxygen O2 Source Room air I&O (Last 24 Hrs): Intake and Output Totals x24h 05/01/20 05/02/20 05/04/20 23:59 23:59 00:59 Intake Total 2710.000 3047.333 935 Output Total 1515 1550 400 Balance 2871.495 6685.333 535 General: Alert, Oriented x3, Cooperative, Mild distress (respiratory) HEENT: PERRLA, EOMI Neck: Supple, No JVD Neuro: Alert, Non Focal, Oriented Times 3 Cardiovascular: Regular rate, Normal S1, Normal S2 Respiratory: Chest non-tender, Other (Mild respiratory distress) Abdomen: Normal bowel sounds, Soft, No tenderness Extremities: No clubbing, No cyanosis, No edema Skin: No rashes - Results Results: Laboratory Results WBC 11.9 x10^3/uL (4.8-10.8) H 05/03/20 05:23 RBC 2.72 10^6/uL (4.70-6.10) L 05/03/20 05:23 Hgb 8.3 g/dL (14.0-18.0) L 05/03/20 05:23 Hct 27.2 % (42.0-52.0) L 05/03/20 05:23 MCV 100.0 fL (80.0-94.0) H 05/03/20 05:23 MCH 30.5 pg (27.0-31.0) 05/03/20 05:23 MCHC 30.5 g/dL (32.0-36.0) L 05/03/20 05:23 RDW 13.9 % (12.0-15.0) 05/03/20 05:23 Plt Count 499 10^3/uL (130-450) H 05/03/20 05:23 MPV 9.7 fL (7.4-11.4) 05/03/20 05:23 Neut # (Auto) 9.0 10^3/uL (1.5-6.6) H 05/03/20 05:23 Lymph # (Auto) 1.1 10^3/uL (1.5-3.5) L 05/03/20 05:23 [place] # (Auto) 1.0 10^3/uL (0.0-1.0) 05/03/20 05:23 Eos # (Auto) 0.7 10^3/uL (0.0-0.7) 05/03/20 05:23 Baso # (Auto) 0.0 10^3/uL (0.0-0.1) 05/03/20 05:23 Absolute Nucleated RBC 0.00 x10^3/uL 05/03/20 05:23 Nucleated RBC % 0.0 /100WBC 05/03/20 05:23 Sodium 141 mmol/L (135-145) 05/03/20 05:23 Potassium 4.1 mmol/L (3.5-5.0) 05/03/20 05:23 Chloride 112 mmol/L (101-111) H 05/03/20 05:23 Carbon Dioxide 22 mmol/L (21-32) 05/03/20 05:23 Anion Gap 7.0 (6-13) 05/03/20 05:23 BUN 35 mg/dL (6-20) H 05/03/20 05:23 Creatinine 1.9 mg/dL (0.6-1.2) H 05/03/20 05:23 Estimated GFR (MDRD) 34 (>89) L 05/03/20 05:23 Glucose 107 mg/dL (70-100) H 05/03/20 05:23 Lactic Acid 1.6 mmol/L (0.5-2.2) 04/29/20 17:20 Calcium 8.4 mg/dL (8.5-10.3) L 05/03/20 05:23 Iron 13 ug/dL (45-182) L 05/01/20 03:53 TIBC 122 ug/dL (250-450) L 05/01/20 03:53 % Saturation 11 % (20-50) L 05/01/20 03:53 Transferrin 87 mg/dL (180-329) L 05/01/20 03:53 Total Bilirubin 0.8 mg/dL (0.2-1.0) 04/29/20 17:20 AST 16 IU/L (10-42) 04/29/20 17:20 ALT 15 IU/L (10-60) 04/29/20 17:20 Alkaline Phosphatase 71 IU/L (42-121) 04/29/20 17:20 B-Natriuretic Peptide 106 pg/mL (5-100) H 04/29/20 17:15 Total Protein 6.9 g/dL (6.7-8.2) 04/29/20 17:20 Albumin 2.5 g/dL (3.2-5.5) L 04/29/20 17:20 Globulin 4.4 g/dL (2.1-4.2) H 04/29/20 17:20 Albumin/Globulin Ratio 0.6 (1.0-2.2) L 04/29/20 17:20 Lipase 27 U/L (22-51) 04/29/20 17:20 Vitamin B12 206 pg/mL (180-914) 05/01/20 03:53 Folate 3.29 ng/mL (5.90 - >24.8) L 05/01/20 03:53 TSH 2.99 uIU/mL (0.34-5.60) 04/29/20 17:15 Urine Color DARK YELLOW 04/29/20 17:57 Urine Clarity CLOUDY (CLEAR) 04/29/20 17:57 Urine pH 6.5 PH (5.0-7.5) 04/29/20 17:57 Ur Specific [place] 1.020 (1.002-1.030) 04/29/20 17:57 Urine Protein >=300 mg/dL (NEGATIVE) H 04/29/20 17:57 Urine Glucose (UA) NEGATIVE mg/dL (NEGATIVE) 04/29/20 17:57 Urine Ketones NEGATIVE mg/dL (NEGATIVE) 04/29/20 17:57 Urine Occult Blood LARGE (NEGATIVE) H 04/29/20 17:57 Urine Nitrite NEGATIVE (NEGATIVE) 04/29/20 17:57 Urine Bilirubin NEGATIVE (NEGATIVE) 04/29/20 17:57 Urine Urobilinogen 0.2 (NORMAL) E.U./dL (NORMAL) 04/29/20 17:57 Ur Leukocyte Esterase TRACE (NEGATIVE) H 04/29/20 17:57 Urine RBC TNTC /HPF (0-5) H 04/29/20 17:57 Urine WBC 11-25 /HPF (0-3) H 04/29/20 17:57 Ur Squamous Epith Cells NONE SEEN (<= Few) 04/29/20 17:57 Urine Bacteria Rare /HPF (None Seen) 04/29/20 17:57 Ur Microscopic Review INDICATED 04/29/20 17:57 Urine Culture Comments INDICATED 04/29/20 17:57 Nasal Adenovirus (PCR) NOT DETECTED 04/29/20 18:43 Nasal B. parapertussis DNA (PCR) NOT DETECTED 04/29/20 18:43 Nasal Coronavir 229E PCR NOT DETECTED 04/29/20 18:43 Nasal Coronavir HKU1 PCR NOT DETECTED 04/29/20 18:43 Nasal Coronavir NL63 PCR NOT DETECTED 04/29/20 18:43 Nasal Coronavir OC43 PCR NOT DETECTED 04/29/20 18:43 Nasal Enterovir/Rhinovir PCR NOT DETECTED 04/29/20 18:43 Nasal Influenza B PCR NOT DETECTED 04/29/20 18:43 Nasal Influenza A PCR NOT DETECTED 04/29/20 18:43 Nasal Parainfluen 1 PCR NOT DETECTED 04/29/20 18:43 Nasal Parainfluen 2 PCR NOT DETECTED 04/29/20 18:43 Nasal Parainfluen 3 PCR NOT DETECTED 04/29/20 18:43 Nasal Parainfluen 4 PCR NOT DETECTED 04/29/20 18:43 Nasal RSV (PCR) NOT DETECTED 04/29/20 18:43 Nasal B.pertussis DNA PCR NOT DETECTED 04/29/20 18:43 Nasal C.pneumoniae (PCR) NOT DETECTED 04/29/20 18:43 Mart Human Metapneumo PCR NOT DETECTED 04/29/20 18:43 Nasal M.pneumoniae (PCR) NOT DETECTED 04/29/20 18:43 Nasal SARS-CoV-2 (PCR) NOT DETECTED 04/29/20 18:43 ABX Reporting Has patient been on IV antibiotics over the past 48 hours?: Yes
[2020-05-03] MEDS: cefTRIAXone 1 GM in SODIUM CHLORIDE 0.9% MINIBAG 100 ML IV SCH (08:33)
[2020-05-03] MEDS: PRENATAL VITAMIN TABLET PO SCH (08:34)
[2020-05-03] MEDS: TAMSULOSIN 0.4 MG CAPSULE PO SCH (08:34)
[2020-05-03] MEDS ORDERED: SODIUM CHLORIDE 0.9% 1,000 ML IV SCH (09:00)
--- NOTE | 2020-05-03 09:36 | XRAY Report ---
PROCEDURE: Chest 1 View X-Ray INDICATIONS: wheezing TECHNIQUE: One view of the chest was acquired. COMPARISON: 05/01/2020 FINDINGS: Surgical changes and devices: None. Lungs and pleura: No pleural effusions or pneumothorax. Mild interstitial change. Mediastinum: Mediastinal contours appear normal. Heart size is normal. Bones and chest wall: No suspicious bony lesions. Overlying soft tissues appear unremarkable. IMPRESSION: Mild interstitial change. No evidence acute pulmonary process. Reviewed by: Wilfredo Deutsch MD on 05/03/2020 8:34 AM VLADIMIR Approved by: Wilfredo Deutsch MD on 05/03/2020 8:34 AM VLADIMIR Station ID: [id number]
[2020-05-04] MEDS: SODIUM CHLORIDE FLUSH 0.9% 10 ML SYRINGE IVP SCH ×3 (07:08→16:20)
[2020-05-04] MEDS: PANTOPRAZOLE 40 MG TABLET PO SCH (07:10)
--- NOTE | 2020-05-04 07:55 | DISCHARGE SUMMARY ---
Discharge Summary Condition at Discharge: Stable - ALLERGIES Allergies/Adverse Reactions: Allergies Allergy/AdvReac Type Severity Reaction Status Date / Time No Known Drug Allergies Allergy Verified 04/29/20 17:08 - MEDICATIONS Home Medications: Ambulatory Orders Medication Instructions Recorded Confirmed Tamsulosin [Flomax] 0.4 mg PO DAILY 04/29/20 04/29/20 - LABS Result Diagrams: 05/03/20 05:23 05/03/20 05:23
--- NOTE | 2020-05-04 07:57 | Discharge Plan ---
Discharge Plan Problem Reviewed?: Yes Disposition: 06 Home Health Service Condition: Stable Diet: Regular Activity Restrictions: Activity as Tolerated Follow-Up Care: Home Health - RN (To manage campbell catheter) No Smoking: If you smoke, Please STOP! Call for help. Follow-up with: Naveed Trevizo MD [Primary Care Provider] -
[2020-05-04 08:11] LABS: BASOPHILS % (AUTO) 0.2 %; EOSINOPHILS # (AUTO) 0.6 10^3/uL (0.0-0.7); HCT - HEMATOCRIT 29.1 % (42.0-52.0); HGB - HEMOGLOBIN 8.7 g/dL (14.0-18.0); LYMPHOCYTES % (AUTO) 8.2 %; MEAN CORPUSCULAR HEMOGLOBIN 30.1 pg (27.0-31.0); MEAN CORPUSCULAR HGB CONC 29.9 g/dL (32.0-36.0); MEAN CORPUSCULAR VOLUME 100.7 fL (80.0-94.0); MEAN PLATELET VOLUME 9.4 fL (7.4-11.4); MONOCYTES # (AUTO) 1.1 10^3/uL (0.0-1.0); MONOCYTES % (AUTO) 9.1 %; NEUTROPHILS # (AUTO) 9.2 10^3/uL (1.5-6.6); NEUTROPHILS % (AUTO) 76.6 %; PLT - PLATELET COUNT 530 10^3/uL (130-450); RED BLOOD COUNT 2.89 10^6/uL (4.70-6.10); RED CELL DISTRIBUTION WIDTH 13.8 % (12.0-15.0); WHITE BLOOD COUNT 12.1 x10^3/uL (4.8-10.8)
[2020-05-04 08:17] LABS: CALCIUM 8.6 mg/dL (8.5-10.3); CREATININE 2.2 mg/dL (0.6-1.2); POTASSIUM 4.5 mmol/L (3.5-5.0)
[2020-05-04] MEDS: cefTRIAXone 1 GM in SODIUM CHLORIDE 0.9% MINIBAG 100 ML IV SCH (09:23)
[2020-05-04] MEDS: PRENATAL VITAMIN TABLET PO SCH (09:23)
[2020-05-04] MEDS: TAMSULOSIN 0.4 MG CAPSULE PO SCH (09:23)
[2020-05-04 10:33] LABS: BILIRUBIN,URINE NEGATIVE (NEGATIVE); GLUCOSE, URINE (UA) NEGATIVE (NEGATIVE); KETONES,URINE (UA) NEGATIVE (NEGATIVE); LEUKOCYTE ESTERASE, URINE MODERATE (NEGATIVE); NITRITE,URINE NEGATIVE (NEGATIVE); OCCULT BLOOD,URINE LARGE (NEGATIVE); PROTEIN,URINE 100 mg/dL (NEGATIVE); UROBILINOGEN,URINE 0.2 (NORMAL) E.U./dL (NORMAL)
[2020-05-04 10:34] LABS: CLARITY,URINE CLOUDY (CLEAR)
[2020-05-04] MEDS: SODIUM CHLORIDE 0.9% 1,000 ML IV SCH ×2 (10:45→21:11)
--- NOTE | 2020-05-04 10:55 | CT Report ---
PROCEDURE: Abdomen/Pelvis WO INDICATIONS: SONIA, hydronephrosis, bladder outlet obstruction TECHNIQUE: Noncontrast 5 mm thick sections acquired from the diaphragms to the symphysis. 5 mm coronal and sagi ttal reformats were then performed. For radiation dose reduction, the following was used: automated exposure control, adjustment of mA and/or kV according to patient size. COMPARISON: CT abdomen/pelvis 05/01/2020. FINDINGS: Image quality: Excellent. ABDOMEN: Lung bases: Emphysematous changes are seen in the included portions of the lungs. Small bilateral ple ural effusions are present. Heart size is normal. Solid organs: Liver and spleen are normal in size. Gallbladder is contracted. Pancreas is normal i n contours. No adrenal nodules. There is moderate bilateral hydroureteronephrosis that does not appear significantly changed when com pared to the CT from 05/01/2020. Nonobstructing calculi are again seen in both kidneys, the largest of which measures up to 3 mm in size bilaterally. Peritoneum and bowel: Multiple diverticula are seen in the sigmoid colon without signs of acute diver ticulitis. No free fluid or air. Nodes and vessels: No retroperitoneal or mesenteric adenopathy by size criteria. Aorta and inferior vena cava are normal in caliber. Moderate aortic atherosclerotic calcifications. Miscellaneous: No ventral hernias. PELVIS: Genitourinary: A Banegas catheter decompresses the bladder and there is a small amount of air in the no ndependent portion of the bladder. The Banegas catheter is deviated towards the right. Subtle increased density is again seen at the bladder base that is poorly evaluated in the absence of contrast materi al and could represent marked prostatomegaly versus a bladder mass. Miscellaneous: No inguinal hernias or adenopathy. Bones: No suspicious bony lesions. Unchanged L3 compression fracture. Degenerative changes are seen in the included spine and there is generalized osteopenia. IMPRESSION: 1. Moderate bilateral hydronephrosis has not significantly changed when compared to the CT from 05/01. 2. Replacement of Banegas catheter, which is deviated towards the right bladder. A subtle soft tissue density is again seen at the bladder base that could represents marked prostatomegaly or a bladder ma ss. Consider further evaluation with bladder ultrasound, pelvic MRI, or CT cystogram if a study with intravenous contrast material cannot be performed. Reviewed by: John Martinez MD on 05/04/2020 10:54 AM PDT Approved by: John Martinez MD on 05/04/2020 10:54 AM PDT Station ID: [id number]
[2020-05-04 11:09] LABS: RBC,URINE TNTC /HPF (0-5); SQUAMOUS EPITHELIAL CELL,UR NONE SEEN (<= Few); WBC CLUMPS,URINE PRESENT
[2020-05-04 11:10] LABS: BACTERIA,URINE Few /HPF (None Seen)
--- NOTE | 2020-05-04 13:37 | PROVIDER PROGRESS NOTE ---
Assessment/Plan - Problem List (1) Acute kidney injury Assessment/Plan: Patient's creatinine today is 2.2 with an estimated GFR of 29. Repeat CT of the abdomen/pelvis without contrast showed persistent moderate hydronephrosis. Prostatomegaly was also still noted. A bladder mass could not be excluded. I spoke with Dr. Melva Wright (urologist) brand ambassador promotional model at [facility] who advised that it might take a while for hydronephrosis and acute injury to improve. Further that if the renal function was not worsening, the patient could be discharged with the campbell catheter in place to follow up with urology outpatient. However considering that the patient's WBC was 12 and repeat UA showed WBC clumps despite rocephin for 5 days, I decided to switch antibiotic to Cipro and treat for prostatitis. IV hydration with normal saline at 83ml/hr resumed. It was held yesterday for dyspnea. (2) Bladder outlet obstruction Assessment/Plan: Patient's creatinine today is 2.2 with an estimated GFR of 29. Repeat CT of the abdomen/pelvis without contrast showed persistent moderate hydronephrosis. Prostatomegaly was also still noted. A bladder mass could not be excluded. I spoke with Dr. Melva Wright (urologist) brand ambassador promotional model at [facility] who advised that it might take a while for hydronephrosis and acute injury to improve. Further that if the renal function was not worsening, the patient could be discharged with the campbell catheter in place to follow up with urology outpatient. However considering that the patient's WBC was 12 and repeat UA showed WBC clumps despite rocephin for 5 days, I decided to switch antibiotic to Cipro and treat for prostatitis. IV hydration with normal saline at 83ml/hr resumed. It was held yesterday for dyspnea. (3) Hydronephrosis Assessment/Plan: Patient's creatinine today is 2.2 with an estimated GFR of 29. Repeat CT of the abdomen/pelvis without contrast showed persistent moderate hydronephrosis. Prostatomegaly was also still noted. A bladder mass could not be excluded. I spoke with Dr. Melva Wright (urologist) brand ambassador promotional model at [facility] who advised that it might take a while for hydronephrosis and acute injury to improve. Further that if the renal function was not worsening, the patient could be discharged with the campbell catheter in place to follow up with urology outpatient. However considering that the patient's WBC was 12 and repeat UA showed WBC clumps despite rocephin for 5 days, I decided to switch antibiotic to Cipro and treat for prostatitis. IV hydration with normal saline at 83ml/hr resumed. It was held yesterday for dyspnea. (5) UTI (urinary tract infection) Qualifiers: Urinary tract infection type: acute cystitis Hematuria presence: with hematuria Qualified Code(s): N30.01 - Acute cystitis with hematuria Assessment/Plan: Repeat UA and urine culture today showed WBC clumps, few bacteria, moderate leukocyte esterase. Rocephin X5 days. Stopped 05/04/20. Cipro 400mg IV q24 started 05/04/20 (7) BPH (benign prostatic hyperplasia) Assessment/Plan: Campbell catheter in place due to bladder outlet obstruction Continue tamsulosin 0.4mg daily Patient will follow up with Urology outpatient upon discharge (8) Hematuria Assessment/Plan: Improved/resolved. Maintain campbell catheter in place. - Current Meds Current Meds: Current Medications Generic Name Dose Route Start Last Admin Trade Name Freq PRN Reason Stop Dose Admin Sodium Chloride 1,000 mls @ 83.333 mls/hr 05/04/20 10:00 05/04/20 10:45 Normal Saline 0.9% IV 83.333 mls/hr .Q12H FAZAL Administration Pantoprazole Sodium 40 mg 04/30/20 07:00 05/04/20 07:10 Pantoprazole 40 Mg Tablet PO 40 mg QDAC FAZAL Administration Multivit/Folic Acid/Iron 1 tab 05/01/20 09:00 05/04/20 09:23 Vitamin Tablet PO 1 tab DAILYWM FAZAL Administration Sodium Chloride 10 ml 04/29/20 18:37 04/29/20 19:47 Sodium Chloride Flush 0.9% 10 Ml Syringe IVP 10 ml PRN PRN Administration NEEDED PER PROVIDER ORDERS Sodium Chloride 10 ml 04/30/20 01:00 05/04/20 09:27 Sodium Chloride Flush 0.9% 10 Ml Syringe IVP Not Given 0100,0900,1700 FAZAL Tamsulosin HCl 0.4 mg 04/30/20 09:00 05/04/20 09:23 Tamsulosin 0.4 Mg Capsule PO 0.4 mg DAILY FAZAL Administration - Lab Result Fish Bone Diagrams: 05/04/20 08:05 05/04/20 08:05 - Additional Planning My Orders: My Active Orders 05/04/20 10:00 Sodium Chloride 0.9% [Normal Saline 0.9%] 1,000 ml IV 83.333 mls/hr 05/04/20 10:15 CUL, URINE [RM] Routine 05/04/20 14:00 Ciprofloxacin 400 mg/200 ml [Cipro 400 mg/200 ml] 400 mg in 200 ml IV Q12H Subjective - Subjective Patient Reports: Other (He was asleep at the time of exam but readily arouses to verbal stimuli. He appears to be somewhat dyspneic with conversation. He sounds very wheezy on exam. There has been no change in his renal function.) Objective Vital Signs: Vital Signs - 24 hr 05/03/20 05/03/20 05/03/20 17:00 21:00 23:43 Temperature 37.1 C 37.1 C 37.2 C Heart Rate [ 99 94 88 Radial] Respiratory 24 24 17 Rate Blood Pressure 127/61 114/51 L 132/48 H [Right Brachial artery] O2 Saturation 93 93 93 05/04/20 05/04/20 05/04/20 03:18 07:53 11:45 Temperature 37.1 C 36.9 C 37.1 C Heart Rate [ 91 82 90 Radial] Respiratory 18 17 18 Rate Blood Pressure 126/63 142/62 H 137/55 H [Right Brachial artery] O2 Saturation 93 94 94 Oxygen O2 Source Room air I&O (Last 24 Hrs): Intake and Output Totals x24h 05/02/20 05/03/20 05/04/20 22:59 23:59 23:59 Intake Total 1975 Output Total 1150 Balance 825 General: Alert, Oriented x3, Cooperative HEENT: PERRLA, EOMI Neck: Supple, No JVD Neuro: Alert, Non Focal, Oriented Times 3 Cardiovascular: Regular rate, Normal S1, Normal S2 Respiratory: Wheezes, Other (Mild respiratory distress) Abdomen: Normal bowel sounds, Soft Extremities: No clubbing, No cyanosis, No edema Skin: No rashes, No breakdown - Results Results: Laboratory Results WBC 12.1 x10^3/uL (4.8-10.8) H 05/04/20 08:05 RBC 2.89 10^6/uL (4.70-6.10) L 05/04/20 08:05 Hgb 8.7 g/dL (14.0-18.0) L 05/04/20 08:05 Hct 29.1 % (42.0-52.0) L 05/04/20 08:05 MCV 100.7 fL (80.0-94.0) H 05/04/20 08:05 MCH 30.1 pg (27.0-31.0) 05/04/20 08:05 MCHC 29.9 g/dL (32.0-36.0) L 05/04/20 08:05 RDW 13.8 % (12.0-15.0) 05/04/20 08:05 Plt Count 530 10^3/uL (130-450) H 05/04/20 08:05 MPV 9.4 fL (7.4-11.4) 05/04/20 08:05 Neut # (Auto) 9.2 10^3/uL (1.5-6.6) H 05/04/20 08:05 Lymph # (Auto) 1.0 10^3/uL (1.5-3.5) L 05/04/20 08:05 [place]ike # (Auto) 1.1 10^3/uL (0.0-1.0) H 05/04/20 08:05 Eos # (Auto) 0.6 10^3/uL (0.0-0.7) 05/04/20 08:05 Baso # (Auto) 0.0 10^3/uL (0.0-0.1) 05/04/20 08:05 Absolute Nucleated RBC 0.00 x10^3/uL 05/04/20 08:05 Nucleated RBC % 0.0 /100WBC 05/04/20 08:05 Sodium 140 mmol/L (135-145) 05/04/20 08:05 Potassium 4.5 mmol/L (3.5-5.0) 05/04/20 08:05 Chloride 107 mmol/L (101-111) 05/04/20 08:05 Carbon Dioxide 23 mmol/L (21-32) 05/04/20 08:05 Anion Gap 10.0 (6-13) 05/04/20 08:05 BUN 41 mg/dL (6-20) H 05/04/20 08:05 Creatinine 2.2 mg/dL (0.6-1.2) H 05/04/20 08:05 Estimated GFR (MDRD) 29 (>89) L 05/04/20 08:05 Glucose 105 mg/dL (70-100) H 05/04/20 08:05 Lactic Acid 1.6 mmol/L (0.5-2.2) 04/29/20 17:20 Calcium 8.6 mg/dL (8.5-10.3) 05/04/20 08:05 Iron 13 ug/dL (45-182) L 05/01/20 03:53 TIBC 122 ug/dL (250-450) L 05/01/20 03:53 % Saturation 11 % (20-50) L 05/01/20 03:53 Transferrin 87 mg/dL (180-329) L 05/01/20 03:53 Total Bilirubin 0.8 mg/dL (0.2-1.0) 04/29/20 17:20 AST 16 IU/L (10-42) 04/29/20 17:20 ALT 15 IU/L (10-60) 04/29/20 17:20 Alkaline Phosphatase 71 IU/L (42-121) 04/29/20 17:20 B-Natriuretic Peptide 106 pg/mL (5-100) H 04/29/20 17:15 Total Protein 6.9 g/dL (6.7-8.2) 04/29/20 17:20 Albumin 2.5 g/dL (3.2-5.5) L 04/29/20 17:20 Globulin 4.4 g/dL (2.1-4.2) H 04/29/20 17:20 Albumin/Globulin Ratio 0.6 (1.0-2.2) L 04/29/20 17:20 Lipase 27 U/L (22-51) 04/29/20 17:20 Vitamin B12 206 pg/mL (180-914) 05/01/20 03:53 Folate 3.29 ng/mL (5.90 - >24.8) L 05/01/20 03:53 TSH 2.99 uIU/mL (0.34-5.60) 04/29/20 17:15 Urine Color LT RED 05/04/20 10:15 Urine Clarity CLOUDY (CLEAR) 05/04/20 10:15 Urine pH 6.0 PH (5.0-7.5) 05/04/20 10:15 Ur Specific [place] 1.020 (1.002-1.030) 05/04/20 10:15 Urine Protein 100 mg/dL (NEGATIVE) H 05/04/20 10:15 Urine Glucose (UA) NEGATIVE mg/dL (NEGATIVE) 05/04/20 10:15 Urine Ketones NEGATIVE mg/dL (NEGATIVE) 05/04/20 10:15 Urine Occult Blood LARGE (NEGATIVE) H 05/04/20 10:15 Urine Nitrite NEGATIVE (NEGATIVE) 05/04/20 10:15 Urine Bilirubin NEGATIVE (NEGATIVE) 05/04/20 10:15 Urine Urobilinogen 0.2 (NORMAL) E.U./dL (NORMAL) 05/04/20 10:15 Ur Leukocyte Esterase MODERATE (NEGATIVE) H 05/04/20 10:15 Urine RBC TNTC /HPF (0-5) H 05/04/20 10:15 Urine WBC 6-10 /HPF (0-3) H 05/04/20 10:15 Urine WBC Clumps PRESENT 05/04/20 10:15 Ur Squamous Epith Cells NONE SEEN (<= Few) 05/04/20 10:15 Urine Bacteria Few /HPF (None Seen) 05/04/20 10:15 Ur Microscopic Review INDICATED 05/04/20 10:15 Urine Culture Comments INDICATED 05/04/20 10:15 Nasal Adenovirus (PCR) NOT DETECTED 04/29/20 18:43 Nasal B. parapertussis DNA (PCR) NOT DETECTED 04/29/20 18:43 Nasal Coronavir 229E PCR NOT DETECTED 04/29/20 18:43 Nasal Coronavir HKU1 PCR NOT DETECTED 04/29/20 18:43 Nasal Coronavir NL63 PCR NOT DETECTED 04/29/20 18:43 Nasal Coronavir OC43 PCR NOT DETECTED 04/29/20 18:43 Nasal Enterovir/Rhinovir PCR NOT DETECTED 04/29/20 18:43 Nasal Influenza B PCR NOT DETECTED 04/29/20 18:43 Nasal Influenza A PCR NOT DETECTED 04/29/20 18:43 Nasal Parainfluen 1 PCR NOT DETECTED 04/29/20 18:43 Nasal Parainfluen 2 PCR NOT DETECTED 04/29/20 18:43 Nasal Parainfluen 3 PCR NOT DETECTED 04/29/20 18:43 Nasal Parainfluen 4 PCR NOT DETECTED 04/29/20 18:43 Nasal RSV (PCR) NOT DETECTED 04/29/20 18:43 Nasal B.pertussis DNA PCR NOT DETECTED 04/29/20 18:43 Nasal C.pneumoniae (PCR) NOT DETECTED 04/29/20 18:43 Mart Human Metapneumo PCR NOT DETECTED 04/29/20 18:43 Nasal M.pneumoniae (PCR) NOT DETECTED 04/29/20 18:43 Nasal SARS-CoV-2 (PCR) NOT DETECTED 04/29/20 18:43 ABX Reporting Has patient been on IV antibiotics over the past 48 hours?: Yes
[2020-05-04] MEDS: CIPROFLOXACIN 400 MG/200 ML 400 MG/200 ML BAG IV SCH (14:14)
[2020-05-04] MEDS: IPRATROPIUM/ALBUTEROL 3 ML NEB INH PRN (14:25)
[2020-05-05] MEDS: SODIUM CHLORIDE FLUSH 0.9% 10 ML SYRINGE IVP SCH ×3 (02:48→21:31)
[2020-05-05] MEDS: PANTOPRAZOLE 40 MG TABLET PO SCH (06:53)
[2020-05-05] MEDS: IPRATROPIUM/ALBUTEROL 3 ML NEB INH PRN ×2 (08:04→15:20)
[2020-05-05 08:21] LABS: BASOPHILS # (AUTO) 0.1 10^3/uL (0.0-0.1); BASOPHILS % (AUTO) 0.4 %; EOSINOPHILS # (AUTO) 0.4 10^3/uL (0.0-0.7); EOSINOPHILS % (AUTO) 2.9 %; HCT - HEMATOCRIT 29.4 % (42.0-52.0); LYMPHOCYTES % (AUTO) 7.3 %; MEAN CORPUSCULAR HEMOGLOBIN 30.8 pg (27.0-31.0); MEAN CORPUSCULAR HGB CONC 30.6 g/dL (32.0-36.0); MEAN CORPUSCULAR VOLUME 100.7 fL (80.0-94.0); MEAN PLATELET VOLUME 9.9 fL (7.4-11.4); MONOCYTES # (AUTO) 1.4 10^3/uL (0.0-1.0); MONOCYTES % (AUTO) 10.1 %; NEUTROPHILS # (AUTO) 10.7 10^3/uL (1.5-6.6); NEUTROPHILS % (AUTO) 78.3 %; PLT - PLATELET COUNT 563 10^3/uL (130-450); RED BLOOD COUNT 2.92 10^6/uL (4.70-6.10); WHITE BLOOD COUNT 13.6 x10^3/uL (4.8-10.8)
[2020-05-05] MEDS: PRENATAL VITAMIN TABLET PO SCH (08:23)
[2020-05-05 08:30] LABS: CALCIUM 8.4 mg/dL (8.5-10.3); CREATININE 2.2 mg/dL (0.6-1.2); POTASSIUM 4.8 mmol/L (3.5-5.0)
[2020-05-05] MEDS: TAMSULOSIN 0.4 MG CAPSULE PO SCH (09:24)
--- NOTE | 2020-05-05 12:39 | PROVIDER PROGRESS NOTE ---
Subjective - Prog Note Date Prog Note Date: 05/05/20 - Subjective Subjective: Feels well overall. Denies abdominal pain, chest pain, dyspnea. No obvious bleeding noted from the catheter. Current Medications - Current Medications Current Medications: Active Medications Acetaminophen (Acetaminophen 325 Mg Tablet) 650 mg PO Q4HR PRN PRN Reason: Pain 1 to 4 Albuterol/Ipratropium (Ipratropium/Albuterol 3 Ml Neb) 3 ml INH Q4HR PRN PRN Reason: Wheezing Last Admin: 05/05/20 08:04 Dose: 3 ml Documented by: Ciprofloxacin (Cipro 400 Mg/200 Ml) 400 mg in 200 mls @ 200 mls/hr IV Q24H [facility] Last Infusion: 05/04/20 15:14 Dose: Infused Documented by: Pantoprazole Sodium (Pantoprazole 40 Mg Tablet) 40 mg PO QDAC [facility] Last Admin: 05/05/20 06:53 Dose: 40 mg Documented by: Multivit/Folic Acid/Iron ( Vitamin Tablet) 1 tab PO DAILYWM [facility] Last Admin: 05/05/20 08:23 Dose: 1 tab Documented by: Sodium Chloride (Sodium Chloride Flush 0.9% 10 Ml Syringe) 10 ml IVP PRN PRN PRN Reason: NEEDED PER PROVIDER ORDERS Last Admin: 04/29/20 19:47 Dose: 10 ml Documented by: Sodium Chloride (Sodium Chloride Flush 0.9% 10 Ml Syringe) 10 ml IVP 0100,0900,1700 [facility] Last Admin: 05/05/20 09:23 Dose: Not Given Documented by: Tamsulosin HCl (Tamsulosin 0.4 Mg Capsule) 0.4 mg PO DAILY [facility] Last Admin: 05/05/20 09:24 Dose: 0.4 mg Documented by: Tamsulosin [Flomax] 0.4 mg PO DAILY 04/29/20 Objective - Vital Signs/Intake & Output Reviewed Vital Signs: Yes Vital Signs: Vital Signs x48h Temp Pulse Pulse Pulse Resp BP Pulse Ox 05/05/20 11:46 37.6 C 116 H 22 149/64 H 92 05/05/20 08:25 37.4 C 100 22 142/58 H 90 L 05/05/20 08:05 104 H 22 05/05/20 05:49 37 C 95 24 130/44 L 91 L Intake & Output: Intake & Output 05/02/20 05/03/20 05/04/20 05/05/20 22:59 23:59 23:59 23:59 Intake Total 3964.441 2197 Output Total 1750 1000 Balance 2214.441 1197 - Objective General Appearance: positive: No acute distress, Alert Eyes Bilateral: positive: Normal inspection, Conjunctivae nml ENT: positive: ENT inspection nml Neck: positive: Nml inspection Respiratory: positive: No respiratory distress. negative: Wheezes, Rales Cardiovascular: positive: Regular rate & rhythm, No murmur. negative: Tachycardia Abdomen: positive: Non-tender, No distention. negative: Tenderness Skin: positive: Warm, Dry Extremities: positive: No pedal edema Neurologic/Psychiatric: negative: Disoriented to person, Disoriented to place - Lab Results Fish Bones: 05/05/20 08:11 05/05/20 15:18 Other Labs: Lab Results x24hrs 05/05/20 05/05/20 05/05/20 Range/Units 08:11 08:11 08:11 WBC 13.6 H (4.8-10.8) x10^3/uL RBC 2.92 L (4.70-6.10) 10^6/uL Hgb 9.0 L (14.0-18.0) g/dL Hct 29.4 L (42.0-52.0) % MCV 100.7 H (80.0-94.0) fL MCH 30.8 (27.0-31.0) pg MCHC 30.6 L (32.0-36.0) g/dL RDW 14.0 (12.0-15.0) % Plt Count 563 H (130-450) 10^3/uL MPV 9.9 (7.4-11.4) fL Neut # (Auto) 10.7 H (1.5-6.6) 10^3/uL Lymph # (Auto) 1.0 L (1.5-3.5) 10^3/uL [place] # (Auto) 1.4 H (0.0-1.0) 10^3/uL Eos # (Auto) 0.4 (0.0-0.7) 10^3/uL Baso # (Auto) 0.1 (0.0-0.1) 10^3/uL Absolute Nucleated RBC 0.00 x10^3/uL Nucleated RBC % 0.0 /100WBC Sodium 141 (135-145) mmol/L Potassium 4.8 (3.5-5.0) mmol/L Chloride 107 (101-111) mmol/L Carbon Dioxide 24 (21-32) mmol/L Anion Gap 10.0 (6-13) BUN 51 H (6-20) mg/dL Creatinine 2.2 H (0.6-1.2) mg/dL Estimated GFR (MDRD) 29 L (>89) Glucose 133 H (70-100) mg/dL Calcium 8.4 L (8.5-10.3) mg/dL Ferritin 413.3 H (23.9-336.2) ng/mL ABX Reporting Has patient been on IV antibiotics over the past 48 hours?: Yes Assessment/Plan - Problem List (1) Acute kidney injury Impression: This is secondary to the bilateral hydronephrosis due to bladder outlet obstruction. Catheter has been placed with urine output present. Despite this, repeat imaging yesterday continued to show bilateral hydronephrosis. His creatinine has been increasing over the past 2 days. His creatinine today is 2.2 and his BUN continues to climb and is now up to 51. This finding was discussed with urology yesterday who recommended observing the patient and as long as renal function was not declining, he could be discharged home and follow-up on outpatient basis. Given his increasing BUN and lack of improvement in his creatinine, we will continue to observe him overnight. If his creatinine is improving tomorrow as well as BUN then he can be discharged home otherwise we will contact urology again for recommendations. (2) Bladder outlet obstruction Impression: This is likely secondary to BPH. Plan as mentioned above. Continue Banegas catheter. (3) Hydronephrosis Impression: Secondary to bladder outlet obstruction. Plan as mentioned above. Continue with Banegas catheter placement. (4) UTI (urinary tract infection) Impression: He had completed 5 days of ceftriaxone. Initial culture was polymicrobial. Due to increasing white count, repeat urinalysis was obtained which continues to show bacteria and WBCs. Given he will need the Banegas catheter on discharge, he was restarted on ciprofloxacin which we will continue. Urine culture is pending. If he is stable for discharge tomorrow we will likely discharge him on oral ciprofloxacin until he can see urology. Qualifiers: Urinary tract infection type: acute cystitis Hematuria presence: with hematuria Qualified Code(s): N30.01 - Acute cystitis with hematuria (5) Acute blood loss anemia Impression: This is likely secondary to the gross hematuria he had. The hematuria has since resolved and is hemoglobin is stable and increasing. Iron studies were not suggestive of iron deficiency anemia. Continue with daily CBC. (6) BPH (benign prostatic hyperplasia) Impression: Continue Flomax. Continue Banegas catheter. He will need outpatient follow-up with Urology. (7) Hematuria Impression: This was likely secondary to Banegas catheter placement. This has since resolved and hemoglobin is stable.
[2020-05-05] MEDS: CIPROFLOXACIN 400 MG/200 ML 400 MG/200 ML BAG IV SCH (14:27)
[2020-05-05 15:33] LABS: CALCIUM 8.6 mg/dL (8.5-10.3); CREATININE 2.1 mg/dL (0.6-1.2); POTASSIUM 4.9 mmol/L (3.5-5.0)
[2020-05-06] MEDS: SODIUM CHLORIDE FLUSH 0.9% 10 ML SYRINGE IVP SCH ×2 (00:58→08:53)
[2020-05-06 05:00] LABS: BASOPHILS % (AUTO) 0.2 %; EOSINOPHILS # (AUTO) 0.6 10^3/uL (0.0-0.7); EOSINOPHILS % (AUTO) 4.3 %; HCT - HEMATOCRIT 26.2 % (42.0-52.0); LYMPHOCYTES # (AUTO) 1.1 10^3/uL (1.5-3.5); LYMPHOCYTES % (AUTO) 8.8 %; MEAN CORPUSCULAR HEMOGLOBIN 30.7 pg (27.0-31.0); MEAN CORPUSCULAR HGB CONC 30.5 g/dL (32.0-36.0); MEAN CORPUSCULAR VOLUME 100.4 fL (80.0-94.0); MEAN PLATELET VOLUME 10.2 fL (7.4-11.4); MONOCYTES # (AUTO) 1.5 10^3/uL (0.0-1.0); MONOCYTES % (AUTO) 11.3 %; NEUTROPHILS # (AUTO) 9.6 10^3/uL (1.5-6.6); NEUTROPHILS % (AUTO) 74.1 %; PLT - PLATELET COUNT 511 10^3/uL (130-450); RED BLOOD COUNT 2.61 10^6/uL (4.70-6.10); RED CELL DISTRIBUTION WIDTH 14.2 % (12.0-15.0)
[2020-05-06 05:06] LABS: CALCIUM 8.5 mg/dL (8.5-10.3); CREATININE 2.3 mg/dL (0.6-1.2); POTASSIUM 4.8 mmol/L (3.5-5.0)
[2020-05-06] MEDS: PANTOPRAZOLE 40 MG TABLET PO SCH (06:18)
[2020-05-06] MEDS ORDERED: ALBUTEROL NEB 2.5 MG/3 ML INH PRN (07:57)
[2020-05-06] MEDS ORDERED: predniSONE 20 MG TABLET PO SCH (08:00)
--- NOTE | 2020-05-06 08:38 | XRAY Report ---
PROCEDURE: Chest 1 View X-Ray INDICATIONS: Dyspnea; wheezing; hypoxia TECHNIQUE: One view of the chest was acquired. COMPARISON: 05/03/2020 FINDINGS: Surgical changes and devices: None Lungs and pleura: Mild cephalization of pulmonary vessels is new from prior study. Worsened bilateral interstitial opacities. There are new patchy bilateral airspace opacities also. No visible pleural e ffusion. Mediastinum: Mediastinal contours appear normal. Heart size is normal. Bones and chest wall: No suspicious bony lesions. Overlying soft tissues appear unremarkable. IMPRESSION: Increased interstitial and patchy bilateral airspace opacities when compared with the prior study. Fi ndings suggest worsening pulmonary edema or perhaps multifocal infectious process. Correlate with CBC and BNP. Reviewed by: Messi Kumar MD on 05/06/2020 8:36 AM PDT Approved by: Messi Kumar MD on 05/06/2020 8:36 AM PDT Station ID: [id number]
[2020-05-06] MEDS: IPRATROPIUM/ALBUTEROL 3 ML NEB INH SCH ×2 (08:40→14:35)
--- NOTE | 2020-05-06 08:46 | PROVIDER PROGRESS NOTE ---
Subjective - Prog Note Date Prog Note Date: 05/06/20 - Subjective Subjective: He reports no dyspnea at rest but feels short of breath with minimal exertion. He does not feel like he is able to go home in his current condition. He is also worried about his renal function and is wondering if he needs to see urology sooner than later. Current Medications - Current Medications Current Medications: Active Medications Acetaminophen (Acetaminophen 325 Mg Tablet) 650 mg PO Q4HR PRN PRN Reason: Pain 1 to 4 Albuterol (Albuterol Neb 2.5 Mg/3 Ml) 2.5 mg INH RTQ4H PRN PRN Reason: Wheezing Albuterol/Ipratropium (Ipratropium/Albuterol 3 Ml Neb) 3 ml INH RTQ4H [facility] Last Admin: 05/06/20 08:40 Dose: 3 ml Documented by: Ciprofloxacin (Cipro 400 Mg/200 Ml) 400 mg in 200 mls @ 200 mls/hr IV Q24H [facility] Last Infusion: 05/05/20 15:30 Dose: Infused Documented by: Pantoprazole Sodium (Pantoprazole 40 Mg Tablet) 40 mg PO QDAC [facility] Last Admin: 05/06/20 06:18 Dose: 40 mg Documented by: Prednisone (Prednisone 20 Mg Tablet) 40 mg PO DAILYWM [facility] Stop: 05/10/20 08:01 Multivit/Folic Acid/Iron ( Vitamin Tablet) 1 tab PO DAILYWM [facility] Last Admin: 05/05/20 08:23 Dose: 1 tab Documented by: Sodium Chloride (Sodium Chloride Flush 0.9% 10 Ml Syringe) 10 ml IVP PRN PRN PRN Reason: NEEDED PER PROVIDER ORDERS Last Admin: 04/29/20 19:47 Dose: 10 ml Documented by: Sodium Chloride (Sodium Chloride Flush 0.9% 10 Ml Syringe) 10 ml IVP 0100,0900,1700 [facility] Last Admin: 05/06/20 00:58 Dose: 10 ml Documented by: Tamsulosin HCl (Tamsulosin 0.4 Mg Capsule) 0.4 mg PO DAILY [facility] Last Admin: 05/05/20 09:24 Dose: 0.4 mg Documented by: Tamsulosin [Flomax] 0.4 mg PO DAILY 04/29/20 Objective - Vital Signs/Intake & Output Reviewed Vital Signs: Yes Vital Signs: Vital Signs x48h Temp Pulse Pulse Resp BP Pulse Ox 05/06/20 08:01 37.2 C 99 20 132/54 H 96 05/06/20 03:27 37.2 C 87 20 120/49 L 96 05/06/20 01:00 95 Intake & Output: Intake & Output 05/03/20 05/04/20 05/05/20 05/06/20 23:59 23:59 23:59 23:59 Intake Total 3964.441 3097 Output Total 1750 1550 600 Balance 2214.441 1547 -600 - Objective General Appearance: positive: No acute distress, Alert Eyes Bilateral: positive: Normal inspection, Conjunctivae nml ENT: positive: ENT inspection nml Neck: positive: Nml inspection Respiratory: positive: No respiratory distress, Wheezes, Other (He is tachypneic but not in distress. He has bilateral expiratory wheezes.). negative: Rales, Rhonchi Cardiovascular: positive: Tachycardia. negative: Irregularly irregular, B radycardia, Systolic murmur Abdomen: positive: Non-tender, No distention. negative: Tenderness Skin: positive: Warm, Dry Extremities: positive: No pedal edema Neurologic/Psychiatric: negative: Disoriented to person, Disoriented to place - Lab Results Fish Bones: 05/06/20 04:08 05/06/20 04:08 Other Labs: Lab Results x24hrs 05/06/20 05/06/20 05/05/20 Range/Units 04:08 04:08 15:18 WBC 13.0 H (4.8-10.8) x10^3/uL RBC 2.61 L (4.70-6.10) 10^6/uL Hgb 8.0 L (14.0-18.0) g/dL Hct 26.2 L (42.0-52.0) % MCV 100.4 H (80.0-94.0) fL MCH 30.7 (27.0-31.0) pg MCHC 30.5 L (32.0-36.0) g/dL RDW 14.2 (12.0-15.0) % Plt Count 511 H (130-450) 10^3/uL MPV 10.2 (7.4-11.4) fL Neut # (Auto) 9.6 H (1.5-6.6) 10^3/uL Lymph # (Auto) 1.1 L (1.5-3.5) 10^3/uL [place] # (Auto) 1.5 H (0.0-1.0) 10^3/uL Eos # (Auto) 0.6 (0.0-0.7) 10^3/uL Baso # (Auto) 0.0 (0.0-0.1) 10^3/uL Absolute Nucleated RBC 0.00 x10^3/uL Nucleated RBC % 0.0 /100WBC Sodium 140 140 (135-145) mmol/L Potassium 4.8 4.9 (3.5-5.0) mmol/L Chloride 107 106 (101-111) mmol/L Carbon Dioxide 23 22 (21-32) mmol/L Anion Gap 10.0 12.0 (6-13) BUN 64 H 56 H (6-20) mg/dL Creatinine 2.3 H 2.1 H (0.6-1.2) mg/dL Estimated GFR (MDRD) 27 L 30 L (>89) Glucose 107 H 134 H (70-100) mg/dL Calcium 8.5 8.6 (8.5-10.3) mg/dL Ferritin (23.9-336.2) ng/mL 05/05/20 Range/Units 08:11 WBC (4.8-10.8) x10^3/uL RBC (4.70-6.10) 10^6/uL Hgb (14.0-18.0) g/dL Hct (42.0-52.0) % MCV (80.0-94.0) fL MCH (27.0-31.0) pg MCHC (32.0-36.0) g/dL RDW (12.0-15.0) % Plt Count (130-450) 10^3/uL MPV (7.4-11.4) fL Neut # (Auto) (1.5-6.6) 10^3/uL Lymph # (Auto) (1.5-3.5) 10^3/uL [place] # (Auto) (0.0-1.0) 10^3/uL Eos # (Auto) (0.0-0.7) 10^3/uL Baso # (Auto) (0.0-0.1) 10^3/uL Absolute Nucleated RBC x10^3/uL Nucleated RBC % /100WBC Sodium (135-145) mmol/L Potassium (3.5-5.0) mmol/L Chloride (101-111) mmol/L Carbon Dioxide (21-32) mmol/L Anion Gap (6-13) BUN (6-20) mg/dL Creatinine (0.6-1.2) mg/dL Estimated GFR (MDRD) (>89) Glucose (70-100) mg/dL Calcium (8.5-10.3) mg/dL Ferritin 413.3 H (23.9-336.2) ng/mL ABX Reporting Has patient been on IV antibiotics over the past 48 hours?: Yes Assessment/Plan - Problem List (1) Acute kidney injury Impression: His creatinine slowly increasing once again and today it is 2.3 which is similar to admission. His BUN continues to climb despite receiving multiple liters of IV fluids. This acute kidney injury is secondary to the bilateral hydronephrosis. I did speak with urology as mentioned below. The plan for the time being will be to continue to monitor his renal function and if his creatinine and BUN continues to climb, he will need to be transferred to higher level of care. His creatinine may ultimately plateau at 2.3 which may be his current baseline and so his hydronephrosis resolves. I will check a urine sodium today. We will hold off on further IV fluids given he has received over 10 L since admission. (2) COPD exacerbation Impression: He does appear to have a mild COPD exacerbation this morning. 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 We will start him on prednisone 40 mg daily and duo nebs every 4 hours albuterol as needed. He will need appropriate inhaler therapy on discharge as well as outpatient pulmonary function testing. We will hold off on supplemental oxygen unless his oxygen saturation is less than 88%. (3) Bladder outlet obstruction Impression: I spoke with urology at [facility] once again today given the patient's creatinine continues to slowly climb as well as his BUN. I reviewed the patient's hospital course and prior labs with a urologist. It is felt that at this time, the patient should continue to be monitored as they are hopeful that his renal function will begin to improve as the hydronephrosis will resolve over next period of time. They did state that if his renal function does not improve over the next 24 to 48 hours then we should contact urology again as he would likely then need to be transferred for further evaluation. At this time we will keep the Banegas catheter in place. We will monitor his urine output closely. We will hold off on further imaging unless recommended by urology. (4) Hydronephrosis Impression: Plan as mentioned above for bladder outlet obstruction. (5) UTI (urinary tract infection) Impression: He had already completed 5 days of ceftriaxone. He had been restarted on ciprofloxacin given his rising white count and repeat urinalysis continued to show pyuria and bacteria. His white count is improving today. Today is day 3 of ciprofloxacin IV. Urine culture is pending. Qualifiers: Urinary tract infection type: acute cystitis Hematuria presence: with hematuria Qualified Code(s): N30.01 - Acute cystitis with hematuria (6) Acute blood loss anemia Impression: His hemoglobin has been stable after the initial drop was due to the hematuria. Hemoglobin did decrease this morning but there is no further evidence of bl eeding. We will continue to monitor on a daily basis. (7) BPH (benign prostatic hyperplasia) Impression: Continue with Flomax. He will be discharged with a Banegas catheter. (8) Hematuria Impression: This has since resolved. This was initially felt to likely be due to trauma. No further gross hematuria.
[2020-05-06] MEDS: PRENATAL VITAMIN TABLET PO SCH (08:52)
[2020-05-06] MEDS: TAMSULOSIN 0.4 MG CAPSULE PO SCH (08:52)
--- NOTE | 2020-05-06 11:33 | DISCHARGE SUMMARY ---
Discharge Summary Admit Date: 05/06/20 Discharge Date: 04/29/20 Discharging Provider: Izaiah Reyes Primary Care Provider: Naveed Trevizo Code Status: Attempt Resuscitation Condition at Discharge: Stable Discharge Disposition: 02 Transfer Acute Care Hosp Discharge Facility [facility]: [facility] - DIAGNOSES Admission Diagnoses: Sepsis Urinary tract infection Acute kidney injury Dehydration Anemia BPH Hard of hearing Discharge Diagnoses with Status of Each Condition: Sepsis - resolved. Acute kidney injury - ongoing. Urinary tract infection - ongoing. COPD exacerbation - ongoing. Bladder outlet obstruction - resolved. Bilateral hydronephrosis - ongoing. Acute blood loss anemia - stable. BPH - stable. Hematuria - resolved. - HPI History of Present Illness: H&P per Dr. Rogel on 04/29/20: This is an 84-year-old white male with a history of prostatic hypertrophy and hard of hearing, he presented to the emergency room with weakness, chills and a fever today. The gave the history and reported that the patient has had weakness with no appetite and very poor oral intake for 2 to 3 weeks and then has complained of chills and been mostly in bed for 2 to 3 days. Today, he spiked a fever and therefore was brought to the emergency room. In the ER, he reported having hematuria, but no dysuria. He did not have a fever in the ER and his work-up showed that he had an elevated white blood cell count of 11.7, abnormal creatinine of 2.3 and was tachycardic at 102. His urinalysis was done that showed indices compatible with a UTI. The patient is being admitted to inpatient status for management of sepsis from a UTI, acute kidney injury, dehydration, failure to thrive, and weakness. - HOSPITAL COURSE Hospital Course: The patient was admitted for sepsis secondary to urinary tract infection and was started on ceftriaxone IV. He presented with fever, leukocytosis, and acute kidney injury. His creatinine was 2.3 on admission and this improved to 2.1 with IV fluids. Renal ultrasound was obtained given the acute kidney injury which showed bilateral hydronephrosis and an enlarged prostate. A Banegas catheter was placed with over a liter of urine output. This was initially gross hematuria which has since resolved. His blood cultures have been negative. Unfortunately, his initial urine culture was polymicrobial. He was kept on ceftriaxone for total of 5 days. Despite the Banegas catheter being placed, his creatinine never became lower than 1.9 and began to rise again. A CT of the abdomen pelvis without contrast was obtained which confirmed the bilateral hydroureteronephrosis. This finding was discussed with urology at that time and it was recommended to continue to observe the patient. On 04 May, his renal function continued to increase as well as his white count and so he was started on ciprofloxacin again after he had already completed 5 days of ceftriaxone. A repeat urinalysis was obtained which continue to reveal pyuria, WBC clumps, and bacteria. A repeat CT of the abdomen and pelvis without contrast was obtained once again which continue to show bilateral hydronephrosis without improvement. Urology was contacted once again and they continue to recommend observation with outpatient follow-up as long as the patient's renal function did not decline. Over the next 48 hours, his creatinine remained stable at around 2.2-2.3 but his BUN continued to increase and is now in the 60s from 20s on admission. Given this finding, I spoke with urology again today and once again, observation was recommended initially. I discussed this with the patient's and son. At this point in time, they did not feel comfortable that he was not being evaluated by urologist and they did not feel he should be discharged without a urology evaluation despite me reassuring them that his renal function is relatively stable and there is likely no further work-up that urology would do at this time. They asked me to contact urology again and I spoke with the urologist, Dr. Lopez, at [facility] who felt that it would be reasonable to transfer the patient. I spoke with Dr. Galvez of the hospitalist service who graciously accepted the patient in transfer. I updated the patient's who was in agreement with the plan. On day of discharge, the patient did complain of dyspnea with exertion. He did have wheezing on exam which was new compared to the prior day. I will you not have a diagnosis of COPD, he does have extensive smoking history. He was given prednisone 40 mg and started on duo nebs and albuterol as needed. A repeat chest x-ray was obtained which showed slightly increased pulmonary vascular congestion. BNP was repeated which is also increased to 300s from 100 on admission. This is likely due to the amount of IV fluids that he had received during his hospitalization as he is net positive 10L. The IV fluids had been discontinued yesterday and at this point in time, we held off on administering Lasix given he has improved from respiratory standpoint. Lasix may need to be considered in the future if he continues to have significant dyspnea. On day of transfer, his repeat urine culture came back as no growth. He had been on cipr ofloxacin for 3 days and this is now discontinued. - ALLERGIES Allergies/Adverse Reactions: Allergies Allergy/AdvReac Type Severity Reaction Status Date / Time No Known Drug Allergies Allergy Verified 04/29/20 17:08 - MEDICATIONS Home Medications: Ambulatory Orders Medication Instructions Recorded Confirmed Tamsulosin [Flomax] 0.4 mg PO DAILY 04/29/20 04/29/20 - PHYSICAL EXAM AT DISCHARGE General Appearance: positive: No acute distress, Alert Eyes Bilateral: positive: Normal inspection, Conjunctivae nml ENT: positive: ENT inspection nml Neck: positive: Nml inspection Respiratory: positive: No respiratory distress, Wheezes (Faint expiratory wheezes), Other (He is tachypnic.) Cardiovascular: positive: Tachycardia. negative: Irregularly irregular, Systolic murmur Abdomen: positive: Non-tender, No distention. negative: Tenderness Skin: positive: Warm, Dry Extremities: positive: No pedal edema Neurologic/Psychiatric: negative: Disoriented to person, Disoriented to place Physical Exam Other/Comments: Vital Signs - 24 hr 05/05/20 05/05/20 05/05/20 15:20 15:50 16:01 Temperature 37.6 C 36.9 C Heart Rate 90 80 Heart Rate [ 97 Brachial] Heart Rate [ Radial] Respiratory 24 18 24 Rate Blood Pressure 134/55 H [Left Brachial artery] Blood Pressure [Right Brachial artery] O2 Saturation 92 92 05/05/20 05/06/20 05/06/20 21:00 00:00 01:00 Temperature 37.1 C 36.8 C Heart Rate Heart Rate [ 96 95 Brachial] Heart Rate [ Radial] Respiratory 18 20 Rate Blood Pressure 120/49 L [Left Brachial artery] Blood Pressure 110/82 H [Right Brachial artery] O2 Saturation 92 92 95 05/06/20 05/06/20 05/06/20 03:27 08:01 08:40 Temperature 37.2 C 37.2 C Heart Rate 101 H Heart Rate [ 87 Brachial] Heart Rate [ 99 Radial] Respiratory 20 20 24 Rate Blood Pressure [Left Brachial artery] Blood Pressure 120/49 L 132/54 H [Right Brachial artery] O2 Saturation 96 96 05/06/20 12:05 Temperature 37.4 C Heart Rate Heart Rate [ Brachial] Heart Rate [ 95 Radial] Respiratory 20 Rate Blood Pressure [Left Brachial artery] Blood Pressure 144/54 H [Right Brachial artery] O2 Saturation 91 L Oxygen O2 Source Room air - LABS Result Diagrams: 05/06/20 04:08 05/06/20 04:08 Other Lab Results: Microbiology Results 05/04/20 10:15 Urine,Catheterized Urine Culture - Final No growth 05/01/20 08:10 Blood Blood Culture - Final NO GROWTH AFTER 5 DAYS 05/01/20 08:05 Blood Blood Culture - Final NO GROWTH AFTER 5 DAYS 04/29/20 19:09 Blood - Left Arm Blood Culture - Final NO GROWTH AFTER 5 DAYS 04/29/20 18:54 Blood - Left Arm Blood Culture - Final NO GROWTH AFTER 5 DAYS Laboratory Results 05/06/20 04:08: B-Natriuretic Peptide 378 H 05/06/20 04:08: Sodium 140, Potassium 4.8, Chloride 107, Carbon Dioxide 23, Anion Gap 10.0, BUN 64 H, Creatinine 2.3 H, Estimated GFR (MDRD) 27 L, Glucose 107 H, Calcium 8.5 05/06/20 04:08: WBC 13.0 H, RBC 2.61 L, Hgb 8.0 L, Hct 26.2 L, MCV 100.4 H, MCH 30.7, MCHC 30.5 L, RDW 14.2, Plt Count 511 H, MPV 10.2, Neut # (Auto) 9.6 H, Lymph # (Auto) 1.1 L, [place] # (Auto) 1.5 H, Eos # (Auto) 0.6, Baso # (Auto) 0.0, Absolute Nucleated RBC 0.00, Nucleated RBC % 0.0 05/05/20 15:18: Sodium 140, Potassium 4.9, Chloride 106, Carbon Dioxide 22, Anion Gap 12.0, BUN 56 H, Creatinine 2.1 H, Estimated GFR (MDRD) 30 L, Glucose 134 H, Calcium 8.6 05/05/20 08:11: Ferritin 413.3 H 05/05/20 08:11: Sodium 141, Potassium 4.8, Chloride 107, Carbon Dioxide 24, Anion Gap 10.0, BUN 51 H, Creatinine 2.2 H, Estimated GFR (MDRD) 29 L, Glucose 133 H, Calcium 8.4 L 05/05/20 08:11: WBC 13.6 H, RBC 2.92 L, Hgb 9.0 L, Hct 29.4 L, MCV 100.7 H, MCH 30.8, MCHC 30.6 L, RDW 14.0, Plt Count 563 H, MPV 9.9, Neut # (Auto) 10.7 H, [place] # (Auto) 1.0 L, [place] # (Auto) 1.4 H, Eos # (Auto) 0.4, Baso # (Auto) 0.1, Absolute Nucleated RBC 0.00, Nucleated RBC % 0.0 - DIAGNOSTIC IMAGING Diagnostic Imaging Results: Final report reviewed Diagnostic Imaging Results Comments: Retroperitoneal ultrasound on May 01 showed moderate bilateral hydronephrosis. No ureteral calculus is seen. Prostatomegaly. Kidneys are normal in size. Right kidney measures 10.1 cm long, left kidney measures 14.1 cm long. Right renal cortical thickness is 1.3 cm, left renal cortical thickness is 0.9 cm. No solid masses or nephrolithiasis. Multiple bilateral renal cysts are seen, large st of which measures up to 4.5 cm at the inferior pole of left kidney. There is moderate bilateral hydronephrosis. Prostate is enlarged, measuring 6.5 x 6.5 x 7.4 cm (164 mL). CT of the abdomen and pelvis without contrast on May 01 showed moderate bilateral hydroureteronephrosis. Hydronephrosis likely due to bladder outlet obstruction. Marked prostatomegaly with suspected median lobe hypertrophy. This likely accounts for the soft tissue density at the base of the urinary bladder. This area is difficult to evaluate without IV contrast. Malignant neoplasm cannot be excluded. No obstructing kidney stones. Small bilateral nonobstructing kidney stones. Prominent stool in the colon. L3 compression fracture. CT of the abdomen and pelvis without contrast on May 04 showed moderate bilateral hydronephrosis has not significantly changed when compared to CT from May 01. Replacement of Banegas catheter, which is deviated towards the right bladder. Subtle soft tissue density is again seen at the bladder base that could represent marked prostatomegaly or a bladder mass. Consider further evaluation with bladder ultrasound, pelvic MRI, or CT cystogram for study with intravenous contrast material cannot be performed. - SEPSIS Current Stage of Sepsis: Resolved Possible source of Sepsis: Genitourinary Sepsis Criteria: Recorded Temperature greater than 38.3C or Less than 36C, Recorded Heart Rate greater than 90 bpm, WBC count greater than 12,000 or less than 4000, Renal: urine output less than 0.5ml/kg/hr for 2 hours or creatinine gr - TIME SPENT Time Spent in Discharge (Minutes): 42
[2020-05-06 12:07] VITALS: BP 144/54
== END 2020-05-06 14:50 | disposition short-term general hospital (02) | DRG 872 ==
LOC: ED 16:52 → MS3 18:37 → MS2 05-02 21:17
PROVIDERS: ADMIT Internal Medicine; ATTEND Internal Medicine
DX: A41.9 Sepsis, unspecified organism (principal); N30.01 Acute cystitis with hematuria; K59.00 Constipation, unspecified; N17.9 Acute kidney failure, unspecified; I10 Essential (primary) hypertension; R00.0 Tachycardia, unspecified; R53.1 Weakness; D62 Acute posthemorrhagic anemia; J44.1 Chronic obstructive pulmonary disease with (acute) exacerbation; N13.30 Unspecified hydronephrosis; E86.0 Dehydration; N32.0 Bladder-neck obstruction; N40.0 Benign prostatic hyperplasia without lower urinary tract symptoms; R62.7 Adult failure to thrive; H91.90 Unspecified hearing loss, unspecified ear; Z20.822 Contact with and (suspected) exposure to COVID-19; E78.00 Pure hypercholesterolemia, unspecified; Z12.5 Encounter for screening for malignant neoplasm of prostate; R31.9 Hematuria, unspecified
CPT/HCPCS: 36415; 51798; 71045; 74176; 76770; 80048; 80053; 80061; 81001; 82607; 82728; 82746; 83540; 83605; 83690; 83880; 84443; 84466; 85025; 87040; 87086; 87631; 93005; 94640; 96361; 96374; 99283; 99285; A9270; G0103; J7512; 0202U; 81003; 83721; 84153; 84300